=== PATIENT | female | born 1945 | race Caucasian/White ===

== ENCOUNTER → 2019-01-26 | Outpatient (CLI) | payer MEDICARE, BC | END | disposition home or self-care (01) | LOC: LABWHC1 12:07 | PROVIDERS: ATTEND Orthopaedic Surgery | DX: M25.531 Pain in right wrist (principal); S52.501A Unspecified fracture of the lower end of right radius, initial encounter for closed fracture | CPT/HCPCS: 36415; 82306 ==

== ENCOUNTER 2023-11-21 11:17 | Inpatient (IN) | payer MEDICARE, BC ==
[2023-11-21 13:01] LABS: Basophils # (A) 0.1 k/uL (0-0.2); Basophils % (A) 1 %; Eosinophils # (A) 0.6 k/uL (0-0.7); Eosinophils % (A) 4 %; HCT 33.5 % (34.0-46.0); HGB 10.8 gm/dL (11.4-16.0); Lymphocytes # (A) 2.2 k/uL (1.0-4.8); Lymphocytes % (A) 16 %; MCH 28.5 pg (25.0-35.0); MCHC 32.3 g/dL (31.0-37.0); MCV 88.2 fL (80.0-100.0); Mean Platelet Volume 7.1; Monocytes # (A) 0.5 k/uL (0-1.0); Monocytes % (A) 3 %; Neutrophils # (A) 10.5 k/uL (1.3-7.7); Neutrophils % (A) 75 %; Platelet Count 647 k/uL (150-450); RDW 13.7 % (11.5-15.5)
[2023-11-21 13:13] LABS: ALT 16 U/L (4-34); AST 29 U/L (14-36); African American GFR (CKD) 47 (>60 ml/min/1.73 sqM); Albumin 4.2 g/dL (3.5-5.0); Alkaline Phosphatase 220 U/L (38-126); Anion Gap 13 mmol/L; Blood Urea Nitrogen 34 mg/dL (7-17); Calcium 10.7 mg/dL (8.4-10.2); Carbon Dioxide 27 mmol/L (22-30); Chloride 95 mmol/L (98-107); Glucose 99 mg/dL (74-99); INR 0.9 (<1.2); Non-African American GFR(CKD) 41 (>60 ml/min/1.73 sqM); Potassium 3.1 mmol/L (3.5-5.1); Prothrombin Time 10.4 sec (10.0-12.5); Sodium 135 mmol/L (137-145); Total Bilirubin 0.7 mg/dL (0.2-1.3); Total Protein 8.3 g/dL (6.3-8.2)
--- NOTE | 2023-11-21 13:14 | XR ---
EXAMINATION TYPE: XR chest 2V DATE OF EXAM: 11/21/2023 COMPARISON: NONE HISTORY: Shortness of breath TECHNIQUE: Frontal and lateral views of the chest are obtained. FINDINGS: Scattered senescent parenchymal changes noted. Hyperinflation compatible with COPD. Right basilar infiltrate and small effusion. There is cardiomegaly with pulmonary venous congestion. Correlate for pneumonia AND/or atypical congestive failure. Progress studies are advised. Mediastinal structures are stable and grossly unremarkable. No evidence for hilar prominence. Degenerative changes dorsal spine. IMPRESSION: 1. Right basilar infiltrate and small effusion. There is cardiomegaly with pulmonary venous congestio n. Correlate for pneumonia AND/or atypical congestive failure. Progress studies are advised.
[2023-11-21] MEDS: LORazepam 2 MG/ML INJ IV STA (13:41)
--- NOTE | 2023-11-21 13:52 | ED ---
General Adult HPI - General Chief complaint: Shortness of Breath Stated complaint: Pneumonia Time Seen by Provider: 11/21/23 13:00 Source: patient, RN notes reviewed, old records reviewed Mode of arrival: ambulatory Limitations: no limitations - History of Present Illness Initial comments: This is an 78-year-old female who presents to the emergency department the past medical history significant for terminal lung cancer. Patient was down in [place] recently and had a thoracentesis. Patient states she came up in mid October to [place]. Patient states over the last 10 days she has had more more difficulty breathing and today she states she just feels like she cannot catch her breath. Patient denies any pain. Patient has any chest pain or any recent fever chills or cough or patient has any abdominal pain patient has nausea vomiting diarrhea. Patient states she just feels like she might need to have her lung drained again. - Related Data Home Medications Medication Instructions Recorded Confirmed Aspirin [Bates Aspirin EC] 81 mg PO DAILY 11/21/23 11/21/23 Chlorthalidone 50 mg PO DAILY 11/21/23 11/21/23 Cholecalciferol [Vitamin D3 (25 25 mcg PO DAILY 11/21/23 11/21/23 Mcg = 1000 Iu)] Losartan Potassium [Cozaar] 100 mg PO DAILY 11/21/23 11/21/23 bisacodyL [Dulcolax] 5 mg PO BID PRN 11/21/23 11/21/23 Allergies Allergy/AdvReac Type Severity Reaction Status Date / Time No Known Allergies Allergy Verified 11/21/23 15:16 Review of Systems ROS Statement: Those systems with pertinent positive or pertinent negative responses have been documented in the HPI. ROS Other: All systems not noted in ROS Statement are negative. Past Medical History Past Medical History: Cancer, Hypertension Additional Past Medical History / Comment(s): lung cancer w/mets History of Any Multi-Drug Resistant Organisms: None Reported Past Surgical History: Appendectomy, Cholecystectomy, Pacemaker, Tubal Ligation Past Psychological History: No Psychological Hx Reported Smoking Status: Former smoker Past Alcohol Use History: None Reported Past Drug Use History: None Reported General Exam - General Exam Comments Initial Comments: GENERAL: Patient is well-developed and well-nourished. Patient is nontoxic and well- hydrated and is in mild distress. ENT: Neck is soft and supple. No significant lymphadenopathy is noted. Oropharynx is clear. Moist mucous membranes. Neck has full range of motion without eliciting any pain. EYES: The sclera were anicteric and conjunctiva were pink and moist. Extraocular mo vements were intact and pupils were equal round and reactive to light. Eyelids were unremarkable. PULMONARY: Patient has diminished breath sounds on the right CARDIOVASCULAR: There is a regular rate and rhythm without any murmurs gallops or rubs. ABDOMEN: Soft and nontender with normal bowel sounds. SKIN: Skin is clear with no lesions or rashes and otherwise unremarkable. NEUROLOGIC: Patient is alert and oriented x3. Cranial nerves II through XII are grossly intact. Motor and sensory are also intact. Normal speech, volume and content. Symmetrical smile. MUSCULOSKELETAL: Normal extremities with adequate strength and full range of motion. No lower extremity swelling or edema. No calf tenderness. LYMPHATICS: No significant lymphadenopathy is noted PSYCHIATRIC: Normal psychiatric evaluation. Limitations: no limitations Course Vital Signs 11/21/23 11/21/23 11/21/23 11:25 11:45 11:54 Temperature 97.9 F Pulse Rate 97 100 Respiratory 18 20 22 Rate Blood Pressure 115/73 O2 Sat by Pulse 93 L 87 L Oximetry 11/21/23 11/21/23 13:00 14:00 Temperature Pulse Rate 65 68 Respiratory 16 16 Rate Blood Pressure 102/54 98/61 O2 Sat by Pulse 93 L 92 L Oximetry Medical Decision Making - Medical Decision Making EKG is interpreted by myself but EKG shows a paced rhythm at 100 bpm parables 217 QRS is 130 QT interval 362 QTc is 419 Was pt. sent in by a medical professional or institution (, PA, PERSONALIZATION SPECIALIST, urgent care, hospital, or long-term...) When possible be specific @ -Dr. Perez sent the patient in Did you speak to anyone other than the patient for history (EMS, parent, family, police, friend...)? What history was obtained from this source @ -Daughter gives almost all of the history because the patient is too anxious to Did you review nursing and triage notes (agree or disagree)? Why? @ -I reviewed and agree with nursing and triage notes Were old charts reviewed (outside hosp., previous admission, EMS record, old EKG, old radiological studies, urgent care reports/EKG's, long-term records)? Report findings @ -I reviewed prior lab work and compared to today's lab work and saw no significant abnormalities. Differential Diagnosis (chest pain, altered mental status, abdominal pain women, abdominal pain men, vaginal bleeding, weakness, fever, dyspnea, syncope, headache, dizziness, GI bleed, back pain, seizure, CVA, palpatations, mental health, musculoskeletal)? @ -Not applicable EKG interpreted by me (3pts min.). @ -As above X-rays interpreted by me (1pt min.). @ -Chest x-ray shows a right-sided pleural effusion CT interpreted by me (1pt min.). @ -CT scan shows no pulmonary embolism but does show pleural effusion on the right. U/S interpreted by me (1pt. min.). @ -None done What testing was considered but not performed or refused? (CT, X-rays, U/S, labs)? Why? @ -None What meds were considered but not given or refused? Why? @ -None Did you discuss the management of the patient with other professionals (professionals i.e. , PA, PERSONALIZATION SPECIALIST, lab, RT, psych nurse, social work faculty member, hay buckler, teacher, project control officer, telehealth case manager)? Give summary @ -I spoke with Dr. Rios he agreed to see the patient on consult. I spoke with Dr. Simpson agreed admit the patient. Was smoking cessation discussed for >3mins.? @ -No Was critical care preformed (if so, how long)? @ -No Were there social determinants of health that impacted care today? How? (Homelessness, low income, unemployed, alcoholism, drug addiction, transportation, low edu. Level, literacy, decrease access to med. care, nursing home, rehab)? @ -No Was there de-escalation of care discussed even if they declined (Discuss DNR or withdrawal of care, Hospice)? DNR status @ -No What co-morbidities impacted this encounter? (DM, HTN, Smoking, COPD, CAD, Cancer, CVA, ARF, Chemo, Hep., AIDS, mental health diagnosis, sleep apnea, morbid obesity)? @ -None Was patient admitted / discharged? Hospital course, mention meds given and route, prescriptions, significant lab abnormalities, going to OR and other pertinent info. @ -Patient received Ativan when she first got here and made her feel considerably better and she no longer appeared in any distress. I spoke with Dr. Rios he agreed to see the patient on consult I spoke with Dr. Johnson agreed to admit the patient I admitted the patient consulted Chris Rios and cardiothoracic. Undiagnosed new problem with uncertain prognosis? @ -No Drug Therapy requiring intensive monitoring for toxicity (Heparin, Nitro, Insulin, Cardizem)? @ -No Were any procedures done? @ -No Diagnosis/symptom? @ -Terminal lung cancer Acute, or Chronic, or Acute on Chronic? @ -Acute Uncomplicated (without systemic symptoms) or Complicated (systemic symptoms)? @ -Complicated Side effects of treatment? @ -No Exacerbation, Progression, or Severe Exacerbation? @ -No Poses a threat to life or bodily function? How? (Chest pain, USA, VT, pneumonia, PE, COPD, DKA, ARF, appy, cholecystitis, CVA, Diverticulitis, Homicidal, Suicidal, threat to staff... and all critical care pts) @ -Yes this can cause her hypoxia and end organ dysfunction Diagnosis/symptom? @ -Pleural effusion Acute, or Chronic, or Acute on Chronic? @ -Acute Uncomplicated (without systemic symptoms) or Complicated (systemic symptoms)? @ -Complicated Side effects of treatment? @ -None Exacerbation, Progression, or Severe Exacerbation] @ -No Poses a threat to life or bodily function? @ -Yes this can lead to poor ventilation and hypoxia and endorgan dysfunction Diagnosis/symptom? @ -Anxiety Acute, or Chronic, or Acute on Chronic? @ -Acute Uncomplicated (without systemic symptoms) or Complicated (systemic symptoms)? @ -Complicated Side effects of treatment? @ -None Exacerbation, Progression, or Severe Exacerbation] @ -No Poses a threat to life or bodily function? @ -No - Lab Data Result diagrams: 11/21/23 12:57 11/21/23 12:57 Lab Results 11/21/23 11/21/23 11/21/23 Range/Units 12:57 12:57 12:57 WBC 14.0 H (3.8-10.6) k/uL RBC 3.80 (3.80-5.40) m/uL Hgb 10.8 L (11.4-16.0) gm/dL Hct 33.5 L (34.0-46.0) % MCV 88.2 (80.0-100.0) fL MCH 28.5 (25.0-35.0) pg MCHC 32.3 (31.0-37.0) g/dL RDW 13.7 (11.5-15.5) % Plt Count 647 H (150-450) k/uL MPV 7.1 Neutrophils % 75 % Lymphocytes % 16 % Monocytes % 3 % Eosinophils % 4 % Basophils % 1 % Neutrophils # 10.5 H (1.3-7.7) k/uL Lymphocytes # 2.2 (1.0-4.8) k/uL Monocytes # 0.5 (0-1.0) k/uL Eosinophils # 0.6 (0-0.7) k/uL Basophils # 0.1 (0-0.2) k/uL PT 10.4 (10.0-12.5) sec INR 0.9 (<1.2) APTT 23.0 (22.0-30.0) sec Sodium 135 L (137-145) mmol/L Potassium 3.1 L (3.5-5.1) mmol/L Chloride 95 L (98-107) mmol/L Carbon Dioxide 27 (22-30) mmol/L Anion Gap 13 mmol/L BUN 34 H (7-17) mg/dL Creatinine 1.25 H (0.52-1.04) mg/dL Est GFR (CKD-EPI)AfAm 47 (>60 ml/min/1.73 sqM) Est GFR (CKD-EPI)NonAf 41 (>60 ml/min/1.73 sqM) Glucose 99 (74-99) mg/dL Plasma Lactic Acid Lenin (0.7-2.0) mmol/L Calcium 10.7 H (8.4-10.2) mg/dL Magnesium 2.0 (1.6-2.3) mg/dL Total Bilirubin 0.7 (0.2-1.3) mg/dL AST 29 (14-36) U/L ALT 16 (4-34) U/L Alkaline Phosphatase 220 H (38-126) U/L Troponin I (0.000-0.034) ng/mL Total Protein 8.3 H (6.3-8.2) g/dL Albumin 4.2 (3.5-5.0) g/dL 11/21/23 11/21/23 Range/Units 12:57 12:57 WBC (3.8-10.6) k/uL RBC (3.80-5.40) m/uL Hgb (11.4-16.0) gm/dL Hct (34.0-46.0) % MCV (80.0-100.0) fL MCH (25.0-35.0) pg MCHC (31.0-37.0) g/dL RDW (11.5-15.5) % Plt Count (150-450) k/uL MPV Neutrophils % % Lymphocytes % % Monocytes % % Eosinophils % % Basophils % % Neutrophils # (1.3-7.7) k/uL Lymphocytes # (1.0-4.8) k/uL Monocytes # (0-1.0) k/uL Eosinophils # (0-0.7) k/uL Basophils # (0-0.2) k/uL PT (10.0-12.5) sec INR (<1.2) APTT (22.0-30.0) sec Sodium (137-145) mmol/L Potassium (3.5-5.1) mmol/L Chloride (98-107) mmol/L Carbon Dioxide (22-30) mmol/L Anion Gap mmol/L BUN (7-17) mg/dL Creatinine (0.52-1.04) mg/dL Est GFR (CKD-EPI)AfAm (>60 ml/min/1.73 sqM) Est GFR (CKD-EPI)NonAf (>60 ml/min/1.73 sqM) Glucose (74-99) mg/dL Plasma Lactic Acid Lenin 1.6 (0.7-2.0) mmol/L Calcium (8.4-10.2) mg/dL Magnesium (1.6-2.3) mg/dL Total Bilirubin (0.2-1.3) mg/dL AST (14-36) U/L ALT (4-34) U/L Alkaline Phosphatase (38-126) U/L Troponin I 0.023 (0.000-0.034) ng/mL Total Protein (6.3-8.2) g/dL Albumin (3.5-5.0) g/dL Disposition Clinical Impression: Anxiety, Lung cancer, Pleural effusion Disposition: ADMITTED IP TO THIS HOSP Referrals: Мария Ramon MD [Primary Care Provider] - 1-2 days Time of Disposition: 15:33
--- NOTE | 2023-11-21 15:07 | CT ---
CTA CHEST EXAMINATION TYPE: CT chest angio for PE DATE OF EXAM: 11/21/2023 INDICATION: SOB CT DLP: 218 mGycm, Automated exposure control for dose reduction was used. CONTRAST: Patient injected with 100 mL of Isovue 370. COMPARISON: TECHNIQUE: CT of the chest is performed on a spiral scan at 2 mm thick sections. Study is performed with intravenous contrast timed for evaluation for pulmonary embolism. This will limit additional po rtions of the evaluation. 3-D MIP images reconstructed by the technologist are reviewed on the compu ter in the coronal and sagittal planes. FINDINGS: No persistent filling defects are evident to suggest an acute pulmonary embolism. No mediastinal or hilar adenopathy enlarged by CT criteria is evident. The ascending aorta diameter at the level of the main pulmonary artery is 3.0 cm. The main pulmonary artery diameter at the bifurcation is 2.4 cm. There is expansion of the posterior medial fifth rib. Soft tissue density is adjacent. Findings rui red compatible with metastatic lesion. An additional expansile lesion of the posterior lateral right lower ribs 7. Image 80 series 401 some subtle expansion may be present mid right lateral rib, image 4 8 series 401. There is a small right pleural effusion. Adjacent compressive atelectasis is present. There is soft tissue density in the right hilar region encasing the right lower lobe bronchus. Correl ate for neoplasm. Additional soft tissue densities along the mediastinal anterior border near the jermaine g base. Limited CT sections were through the upper abdomen. Minimal ascites adjacent to the liver may be pre sent. IMPRESSION: 1. No acute pulmonary embolism. 2. Right hilar mass with encasement of the right lower lobe bronchus. Workup for neoplasm. 3. Expansile lesion posterior left fifth rib. There may be 2 additional right rib lesions as well di scussed above.
[2023-11-21] MEDS ORDERED: Potassium Replacement Protocol 1 EACH MISC MISCELLANE PRN ×2 (16:04→21:31)
[2023-11-21] MEDS: POTASSIUM CHLORIDE ER 20 MEQ TAB.ER PO SCH ×2 (17:01→21:39)
[2023-11-21] MEDS ORDERED: NALOXONE 0.4 MG/ML 1 ML VIAL IV PRN (17:19)
[2023-11-21] MEDS ORDERED: MELATONIN 3 MG TABLET PO PRN (17:19)
[2023-11-21] MEDS ORDERED: LACTULOSE 20 GM/30 ML CUP PO PRN (17:19)
[2023-11-21] MEDS ORDERED: CALCIUM CARBONATE 500 MG CHEWABLE PO PRN (17:19)
--- NOTE | 2023-11-21 17:21 | P.HPIM ---
History of Present Illness H&P Date: 11/21/23 Chief Complaint: Short of breath This is a pleasant 78-year-old patient. Patient was in [place] diagnosed with pneumonia subsequently was diagnosed with lung cancer. She has lung cancer with metastasis to the bone. Diagnosed in September of this year. She has been drained once for pleural effusion. Seeing Dr. Perez. Has been having weight loss and some loss of appetite. Patient presents with worsening shortness of breath. Denies any fever and chills. No cough. Sitting up in a chair. Patient was a light smoker for several years in the past. Plan outpatient was to put in a drain on the right chest wall. Review of systems: GEN.: Tired loss of appetite weight loss EYES: None HEENT: None NECK: None RESPIRATORY: [Short of breath CARDIOVASCULAR: None GASTROINTESTINAL: None GENITOURINARY: None MUSCULOSKELETAL: None LYMPHATICS: None HEMATOLOGICAL: None PSYCHIATRY: None NEUROLOGICAL: None Social history: Patient smoked about average of 3 cigarettes a day for about 35 years and smoked from the age of 13 to about 48. Patient lives with her [id number] Physical examination: VITAL SIGNS: 98.1, 90, 16, 140 x 87, 100% room air GENERAL: BMI 23.2, sitting up in chair awake tired. EYES: Pupils equal. Conjunctiva marie l. HEENT: External appearance of nose and ears normal, oral cavity grossly normal. NECK: JVD not raised; masses not palpable. HEART: First and second heart sounds are normal; no edema. LUNGS: Respiratory rate increased, diminished breath sounds specially on the right side. ABDOMEN: Soft, nontender, liver spleen not palpable, no masses palpable. PSYCH: Alert and oriented x3; mood and affect marie l. MUSCULOSKELETAL:No Clubbing/cyanosis;muscles-grossly intact. OA NEUROLOGICAL: Cranial nerves grossly intact; no facial asymmetry, power and sensation grossly intact. LYMPHATICS: No lymph nodes palpable in the axilla and neck INVESTIGATIONS, reviewed in the clinical context: November 21, 2023: White count 14 hemoglobin 10.8 platelets 647 sodium 135 potassium 3.1. 34 creatinine 1.25 Influenza type A, type B, RSV, COVID-19: Not detected EKG tracing personally reviewed by va-ventricular pacemaker CT angio chest for PE: No PE. Right hilar mass with encasement of the right upper lobe bronchus. Possibly additional rib lesions. Expansile lesion posterior left fifth rib. Chest x-ray film personally reviewed by me-possible right lower lobe atelectasis/collapse. Possible fluid Assessment plan: -Lung cancer with bone metastasis. Patient is following with oncologist Dr. Perez. Currently has not received any treatment she states. -Right pleural effusion. Patient had thoracentesis x 1. Sent in for the same. Supposed to have a right-sided Pleurx catheter. Consult cardiothoracic surgery -Essential hypertension. Currently blood pressure running on the lower side. Stop Cozaar. Stop diuretic. Lovenox -Hypokalemia from diuretic Replace potassium -Abnormal renal function. Possibly prerenal from diuretic. IV fluids. Repeat labs. -DNR Consult cardiothoracic surgery. Discussed with patient. Consult oncology. Past Medical History Past Medical History: Cancer, Hypertension Additional Past Medical History / Comment(s): lung cancer w/mets History of Any Multi-Drug Resistant Organisms: None Reported Past Surgical History: Appendectomy, Cholecystectomy, Pacemaker, Tubal Ligation Past Psychological History: No Psychological Hx Reported Smoking Status: Former smoker Past Alcohol Use History: None Reported Past Drug Use History: None Reported Medications and Allergies Home Medications Medication Instructions Recorded Confirmed Type Aspirin [Mower Aspirin EC] 81 mg PO DAILY 11/21/23 11/21/23 History Chlorthalidone 50 mg PO DAILY 11/21/23 11/21/23 History Cholecalciferol [Vitamin D3 (25 25 mcg PO DAILY 11/21/23 11/21/23 History Mcg = 1000 Iu)] Losartan Potassium [Cozaar] 100 mg PO DAILY 11/21/23 11/21/23 History bisacodyL [Dulcolax] 5 mg PO BID PRN 11/21/23 11/21/23 History Allergies Allergy/AdvReac Type Severity Reaction Status Date / Time No Known Allergies Allergy Verified 11/21/23 15:16 Physical Exam Vitals: Vital Signs Temp Pulse Resp BP Pulse Ox 11/21/23 17:02 98 20 98/66 95 11/21/23 14:00 68 16 98/61 92 L 11/21/23 13:00 65 16 102/54 93 L 11/21/23 11:54 22 11/21/23 11:45 100 20 87 L 11/21/23 11:25 97.9 F 97 18 115/73 93 L Intake and Output 11/21/23 11/21/23 11/21/23 06:59 14:59 22:59 Other: Weight 53.977 kg Results CBC & Chem 7: 11/21/23 12:57 11/21/23 12:57 Labs: Abnormal Lab Results - Last 24 Hours (Table) 11/21/23 11/21/23 Range/Units 12:57 12:57 WBC 14.0 H (3.8-10.6) k/uL Hgb 10.8 L (11.4-16.0) gm/dL Hct 33.5 L (34.0-46.0) % Plt Count 647 H (150-450) k/uL Neutrophils # 10.5 H (1.3-7.7) k/uL Sodium 135 L (137-145) mmol/L Potassium 3.1 L (3.5-5.1) mmol/L Chloride 95 L (98-107) mmol/L BUN 34 H (7-17) mg/dL Creatinine 1.25 H (0.52-1.04) mg/dL Calcium 10.7 H (8.4-10.2) mg/dL Alkaline Phosphatase 220 H (38-126) U/L Total Protein 8.3 H (6.3-8.2) g/dL
[2023-11-21] MEDS: ENOXAPARIN 40 MG/0.4 ML SYRINGE SQ SCH (18:27)
[2023-11-21] MEDS: SODIUM CHLORIDE 0.45% 1,000 ML IV SCH (18:35)
[2023-11-21] MEDS: Acetaminophen-Codeine 300-30mg TAB PO PRN (18:49)
[2023-11-21] MEDS: LORazepam 1 MG TAB PO PRN (20:56)
[2023-11-21] MEDS: ZOLPIDEM 5 MG TAB PO PRN (20:56)
[2023-11-22] MEDS: POTASSIUM CHLORIDE ER 20 MEQ TAB.ER PO SCH (02:45)
[2023-11-22] MEDS: ONDANSETRON 4 MG/2 ML VIAL IVP PRN (05:21)
[2023-11-22] MEDS: bisacodyL 5 MG TABLET.DR PO PRN (08:13)
--- NOTE | 2023-11-22 08:27 | P.CNPUL ---
History of Present Illness Consult date: 11/22/23 Requesting physician: Lev Simpson Reason for consult: dyspnea, hypoxemia, pleural effusion, abnormal CXR/CT Chief complaint: Shortness of breath, pleural effusion. History of present illness: Pulmonary consult dated November 22, 2023. 78-year-old female who apparently has a history of metastatic lung cancer. She was sent to the hospital, for possible thoracentesis. She apparently has a history of a previous thoracentesis done in [place]. She has never been to this hospital before. She has a history of lung cancer with metastasis, hypertension, and previous pacemaker insertion. She did have a thoracentesis in the past, down to [place], where 1.3 L of fluid was removed. She was seen already by cardiothoracic surgery, because apparently, she was interested in a Pleurx catheter. The patient is currently on 2 L of oxygen. She is getting half-normal saline at 75 cc an hour. Laboratory data includes a white count 14, hemoglobin 10.8, hematocrit 33.5, platelet count of 647,000. Coagulation studies are normal. Sodium 135, potassium 3.5, chlorides 95, CO2 27, anion gap 13, BUN 34, creatinine 1.25. Calcium is 10.7. Alkaline phosphatase is 220. Total protein is 8.3. Testing for influenza, RSV, coronavirus were all negative. Chest x-ray suggest a right basilar infiltrate and small effusion. There is also some cardiomegaly, and venous congestion. CT angiogram showed no evidence of pulmonary embolism, a right hilar mass with encasement of the right lower lobe bronchus, and an expansile lesion in the posterior left fifth rib Review of Systems REVIEW OF SYSTEMS: CONSTITUTIONAL: Weakness. NEUROLOGIC: [ Negative.] HEENT: [ Negative.] CARDIAC: [Negative.] PULMONARY: Shortness of breath. GI: [Negative.] : [Negative.] RHEUMATOLOGIC: [ Negative.] IMMUNOLOGIC: [ Negative.] ENDOCRINE: [Negative. ] DERMATOLOGIC: [Negative.] Past Medical History Past Medical History: Cancer, Hypertension Additional Past Medical History / Comment(s): lung cancer w/mets History of Any Multi-Drug Resistant Organisms: None Reported Past Surgical History: Appendectomy, Cholecystectomy, Pacemaker, Tubal Ligation Type of Cardiac Device: Permanent Pacemaker Device Placement Date:: 2020 Past Psychological History: No Psychological Hx Reported Smoking Status: Former smoker Past Alcohol Use History: None Reported Past Drug Use History: None Reported Medications and Allergies Home Medications Medication Instructions Recorded Confirmed Type Aspirin [[place] Aspirin EC] 81 mg PO DAILY 11/21/23 11/21/23 History Chlorthalidone 50 mg PO DAILY 11/21/23 11/21/23 History Cholecalciferol [Vitamin D3 (25 25 mcg PO DAILY 11/21/23 11/21/23 History Mcg = 1000 Iu)] Losartan Potassium [Cozaar] 100 mg PO DAILY 11/21/23 11/21/23 History bisacodyL [Dulcolax] 5 mg PO BID PRN 11/21/23 11/21/23 History Allergies Allergy/AdvReac Type Severity Reaction Status Date / Time No Known Allergies Allergy Verified 11/21/23 15:16 Physical Exam Osteopathic Statement: *. No significant issues noted on an osteopathic structural exam other than those noted in the History and Physical/Consult. Vitals: Vital Signs Temp Pulse Pulse Resp BP BP Pulse Ox 11/22/23 07:44 98.3 F 105 H 20 92/57 96 11/22/23 02:30 88/50 11/22/23 02:00 98.1 F 95 16 70/41 91 L 11/21/23 20:00 98.5 F 106 H 16 114/70 91 L 11/21/23 19:30 16 11/21/23 18:04 97.2 F L 96 20 107/69 94 L 11/21/23 17:39 93 18 101/62 93 L 11/21/23 17:02 98 20 98/66 95 11/21/23 14:00 68 16 98/61 92 L 11/21/23 13:00 65 16 102/54 93 L 11/21/23 11:54 22 11/21/23 11:45 100 20 87 L 11/21/23 11:25 97.9 F 97 18 115/73 93 L Intake and Output 11/21/23 11/22/23 11/22/23 22:59 06:59 14:59 Intake Total 120 590 Balance 120 590 Intake: Oral 120 590 Other: # Voids 2 Weight 53.977 kg No acute distress, oriented 3. Currently on 2 L. Patient appears frail. HEENT examination is grossly unremarkable. Mucous membranes are moist. No oral lesions. Neck supple. Full range of motion. No adenopathy thyromegaly or neck vein distention. Cardiovascular examination reveals regular rhythm rate. S1-S2 normal. No S3 or S4. No discernible murmur noted. Heart rate 95 bpm. Lungs reveal manage right basilar breath sounds. No wheezes. Scattered rhonchi. Saturations are 96% on 2 L. Abdomen soft bowel sounds are heard. No masses or tenderness. Extremities are intact. No cyanosis clubbing or edema. Skin is without rash or lesion. Neurologic examination is brief but nonfocal. Results - Laboratory Findings CBC and BMP: 11/21/23 12:57 11/22/23 01:26 PT/INR, D-dimer PT 10.4 sec (10.0-12.5) 11/21/23 12:57 INR 0.9 (<1.2) 11/21/23 12:57 Abnormal lab findings: Abnormal Labs 11/21/23 11/21/23 11/21/23 12:57 12:57 21:05 WBC 14.0 H Hgb 10.8 L Hct 33.5 L Plt Count 647 H Neutrophils # 10.5 H Sodium 135 L Potassium 3.1 L 3.1 L Chloride 95 L BUN 34 H Creatinine 1.25 H Calcium 10.7 H Alkaline Phosphatase 220 H Total Protein 8.3 H - Diagnostic Findings Chest x-ray: image reviewed CT scan - chest: image reviewed Assessment and Plan Assessment: History of metastatic lung cancer, with previous right-sided pleural effusion, S/P thoracentesis, in [place]. Shortness of breath, secondary to lung cancer, and right-sided pleural effusion. History of hypertension. Mild hypercalcemia, possibly related to lung cancer, and bony metastasis. History of pacemaker insertion. Plan: Plan dated November 22, 2023. The patient is seen in room 535. She is on 2 L of oxygen. No respiratory distress. She is getting half-normal saline at 75 cc an hour. Cardiothoracic surgery has seen the patient already, for consideration of a Pleurx catheter. The patient has only had [address] scan, the fluid does not appear to be large in quantity. We will check an ultrasound of the right chest, and make a determination as to whether or not the patient would benefit from thoracentesis. Will await opinion from cardiothoracic surgery. Labs, x- rays, and medications are reviewed. Prognosis is poor. Time with Patient: Greater than 30
[2023-11-22] MEDS ORDERED: LOSARTAN 50 MG TAB PO SCH (09:00)
[2023-11-22] MEDS ORDERED: CHLORTHALIDONE 25 MG TAB PO SCH (09:00)
[2023-11-22 09:35] LABS: African American GFR (CKD) 26 (>60 ml/min/1.73 sqM); Anion Gap 14 mmol/L; Blood Urea Nitrogen 45 mg/dL (7-17); Calcium 9.2 mg/dL (8.4-10.2); Carbon Dioxide 22 mmol/L (22-30); Chloride 96 mmol/L (98-107); Glucose 106 mg/dL (74-99); Magnesium 1.8 mg/dL (1.6-2.3); Non-African American GFR(CKD) 22 (>60 ml/min/1.73 sqM); Potassium 4.1 mmol/L (3.5-5.1); Sodium 132 mmol/L (137-145)
--- NOTE | 2023-11-22 10:01 | US ---
EXAMINATION TYPE: US chest DATE OF EXAM: 11/22/2023 COMPARISON: CT & Chest Xray CLINICAL INDICATION: Female, 78 years old with history of Right pleural effusion; Effusion right TECHNIQUE: Targeted ultrasound of the posterior lower right hemithorax EXAM MEASUREMENTS: Right Pleural Effusion pocket size: 1.5 cm Right skin surface to fluid distance: 3.2 cm Right side Not marked for possible thoracentesis outside the dept- fluid pocket too small. Pulmonologists are able to review the images in the patient?s EMR. IMPRESSIONS: As above
--- NOTE | 2023-11-22 11:55 | P.GSCN ---
History of Present Illness Consult date: 11/22/23 Reason for Consult: Metastatic lung cancer with recurrent right-sided pleural effusion, status post right thoracentesis in [place] 2 months ago Requesting physician: Denzel Baum History of present illness: This is an 78-year-old female patient who follows on an outpatient basis with Dr. Houston for her primary care and Dr. Perez for her oncology care. She has a past medical history significant for a recent diagnosis of metastatic lung cancer, according to the patient she was diagnosed a couple of months ago with lung cancer, history of hypertension, history of permanent pacemaker placement, and remote history of smoking dependence quit smoking in her 50s. According to the patient she was at her oncologist office and was requested to present to the emergency department here at [facility] secondary to her symptoms of shortness of breath. The patient denies any recent fever, chills, nausea, vomiting, headache, hemoptysis, hematemesis, chest pain, cough, presyncope or syncope. She does report some generalized weakness. She has a history of a right-sided thoracentesis completed around 2 months ago while visiting in [place]. The patient reports that she had around 1.3 L of pleural fluid drained at that time. The patient reports she presented to the hospital as her oncologist wanted her to be worked up for a Pleurx catheter placement. A chest CTA was completed which demonstrated no acute pulmonary embolism, a right hilar mass with encasement of the right lower lobe bronchus, and and an expansile lesion posterior left fifth rib. Due to the patient's history of righ t pleural effusion pulmonary/critical care medicine was consulted and an ultrasound of her chest was completed which showed a right pleural effusion pocket size of 1.5 cm. Cardiothoracic surgery was consulted for a recurrent right-sided pleural effusion for possible Pleurx catheter placement. Review of Systems A 14 point review of systems was completed and was negative except as mentioned in the HPI. Past Medical History Past Medical History: Cancer, Hypertension Additional Past Medical History / Comment(s): lung cancer w/mets History of Any Multi-Drug Resistant Organisms: None Reported Past Surgical History: Appendectomy, Cholecystectomy, Pacemaker, Tubal Ligation Past Anesthesia/Blood Transfusion Reactions: No Reported Reaction Type of Cardiac Device: Permanent Pacemaker Device Placement Date:: 2020 Past Psychological History: No Psychological Hx Reported Smoking Status: Former smoker (Quit smoking when she was in her 50s) Past Alcohol Use History: None Reported Past Drug Use History: None Reported - Past Family History Mother Family Medical History: CVA/TIA Father Additional Family Medical History / Comment(s): Brain tumor Medications and Allergies Home Medications Medication Instructions Recorded Confirmed Type Aspirin [[place] Aspirin EC] 81 mg PO DAILY 11/21/23 11/21/23 History Chlorthalidone 50 mg PO DAILY 11/21/23 11/21/23 History Cholecalciferol [Vitamin D3 (25 25 mcg PO DAILY 11/21/23 11/21/23 History Mcg = 1000 Iu)] Losartan Potassium [Cozaar] 100 mg PO DAILY 11/21/23 11/21/23 History bisacodyL [Dulcolax] 5 mg PO BID PRN 11/21/23 11/21/23 History Allergies Allergy/AdvReac Type Severity Reaction Status Date / Time No Known Allergies Allergy Verified 11/21/23 15:16 Surgical - Exam Vital Signs Temp Pulse Resp BP Pulse Ox 97.9 F 97 18 115/73 93 L 11/21/23 11:25 11/21/23 11:25 11/21/23 11:25 11/21/23 11:25 11/21/23 11:25 - General well developed, well nourished, no distress, no pain - Eyes PERRL, normal ocular movement, no pale, no icteric - ENT normal pinna, normal nares, normal mucosa, no hearing loss, no congestion - Neck Neck is supple, no lymphadenopathy. no masses, no bruits, trachea midline, no venous distension - Respiratory Lung sounds diminished to her right lower lobe, essentially clear to her left lobes. No wheezes, rhonchi or crackles. Respirations are symmetrical and nonlabored. - Cardiovascular Regular rhythm and rate. S1 and S2 present, negative for S3 or gallop. Systolic murmur 4/6 heard best to her left sternal border. - Abdomen Abdomen: soft, non tender, no tender, bowel sounds, no organomegaly, no masses, no guarding, no rigid, no distended - Genitourinary Deferred - Rectum Deferred - Integumentary Skin is warm and dry. No clubbing or cyanosis is present. no rash, no growths, no abnormal pigmentation - Neurologic No focal deficits. normal coordination, normal sensation - Musculoskeletal Moves all 4 extremities with equal strength bilateral. Generalized weakness. - Psychiatric oriented to time, oriented to person, oriented to place, speech is normal, memory intact Results - Labs 11/21/23 12:57 11/24/23 05:55 Abnormal Lab Results - Last 24 Hours (Table) 11/21/23 11/21/23 11/21/23 Range/Units 12:57 12:57 21:05 WBC 14.0 H (3.8-10.6) k/uL Hgb 10.8 L (11.4-16.0) gm/dL Hct 33.5 L (34.0-46.0) % Plt Count 647 H (150-450) k/uL Neutrophils # 10.5 H (1.3-7.7) k/uL Sodium 135 L (137-145) mmol/L Potassium 3.1 L 3.1 L (3.5-5.1) mmol/L Chloride 95 L (98-107) mmol/L BUN 34 H (7-17) mg/dL Creatinine 1.25 H (0.52-1.04) mg/dL Glucose (74-99) mg/dL Calcium 10.7 H (8.4-10.2) mg/dL Alkaline Phosphatase 220 H (38-126) U/L Total Protein 8.3 H (6.3-8.2) g/dL 11/22/23 Range/Units 08:28 WBC (3.8-10.6) k/uL Hgb (11.4-16.0) gm/dL Hct (34.0-46.0) % Plt Count (150-450) k/uL Neutrophils # (1.3-7.7) k/uL Sodium 132 L (137-145) mmol/L Potassium (3.5-5.1) mmol/L Chloride 96 L (98-107) mmol/L BUN 45 H (7-17) mg/dL Creatinine 2.07 H (0.52-1.04) mg/dL Glucose 106 H (74-99) mg/dL Calcium (8.4-10.2) mg/dL Alkaline Phosphatase (38-126) U/L Total Protein (6.3-8.2) g/dL Diabetes panel 11/21/23 11/21/23 11/22/23 Range/Units 12:57 21:05 01:26 Sodium 135 L (137-145) mmol/L Potassium 3.1 L 3.1 L 3.5 (3.5-5.1) mmol/L Chloride 95 L (98-107) mmol/L Carbon Dioxide 27 (22-30) mmol/L BUN 34 H (7-17) mg/dL Creatinine 1.25 H (0.52-1.04) mg/dL Glucose 99 (74-99) mg/dL Calcium 10.7 H (8.4-10.2) mg/dL AST 29 (14-36) U/L ALT 16 (4-34) U/L Alkaline Phosphatase 220 H (38-126) U/L Total Protein 8.3 H (6.3-8.2) g/dL Albumin 4.2 (3.5-5.0) g/dL 11/22/23 Range/Units 08:28 Sodium 132 L (137-145) mmol/L Potassium 4.1 (3.5-5.1) mmol/L Chloride 96 L (98-107) mmol/L Carbon Dioxide 22 (22-30) mmol/L BUN 45 H (7-17) mg/dL Creatinine 2.07 H (0.52-1.04) mg/dL Glucose 106 H (74-99) mg/dL Calcium 9.2 (8.4-10.2) mg/dL AST (14-36) U/L ALT (4-34) U/L Alkaline Phosphatase (38-126) U/L Total Protein (6.3-8.2) g/dL Albumin (3.5-5.0) g/dL Calcium panel 11/21/23 11/22/23 Range/Units 12:57 08:28 Calcium 10.7 H 9.2 (8.4-10.2) mg/dL Albumin 4.2 (3.5-5.0) g/dL Pituitary panel 11/21/23 11/21/23 11/22/23 Range/Units 12:57 21:05 01:26 Sodium 135 L (137-145) mmol/L Potassium 3.1 L 3.1 L 3.5 (3.5-5.1) mmol/L Chloride 95 L (98-107) mmol/L Carbon Dioxide 27 (22-30) mmol/L BUN 34 H (7-17) mg/dL Creatinine 1.25 H (0.52-1.04) mg/dL Glucose 99 (74-99) mg/dL Calcium 10.7 H (8.4-10.2) mg/dL 11/22/23 Range/Units 08:28 Sodium 132 L (137-145) mmol/L Potassium 4.1 (3.5-5.1) mmol/L Chloride 96 L (98-107) mmol/L Carbon Dioxide 22 (22-30) mmol/L BUN 45 H (7-17) mg/dL Creatinine 2.07 H (0.52-1.04) mg/dL Glucose 106 H (74-99) mg/dL Calcium 9.2 (8.4-10.2) mg/dL Adrenal panel 11/21/23 11/21/23 11/22/23 Range/Units 12:57 21:05 01:26 Sodium 135 L (137-145) mmol/L Potassium 3.1 L 3.1 L 3.5 (3.5-5.1) mmol/L Chloride 95 L (98-107) mmol/L Carbon Dioxide 27 (22-30) mmol/L BUN 34 H (7-17) mg/dL Creatinine 1.25 H (0.52-1.04) mg/dL Glucose 99 (74-99) mg/dL Calcium 10.7 H (8.4-10.2) mg/dL Total Bilirubin 0.7 (0.2-1.3) mg/dL AST 29 (14-36) U/L ALT 16 (4-34) U/L Alkaline Phosphatase 220 H (38-126) U/L Total Protein 8.3 H (6.3-8.2) g/dL Albumin 4.2 (3.5-5.0) g/dL 11/22/23 Range/Units 08:28 Sodium 132 L (137-145) mmol/L Potassium 4.1 (3.5-5.1) mmol/L Chloride 96 L (98-107) mmol/L Carbon Dioxide 22 (22-30) mmol/L BUN 45 H (7-17) mg/dL Creatinine 2.07 H (0.52-1.04) mg/dL Glucose 106 H (74-99) mg/dL Calcium 9.2 (8.4-10.2) mg/dL Total Bilirubin (0.2-1.3) mg/dL AST (14-36) U/L ALT (4-34) U/L Alkaline Phosphatase (38-126) U/L Total Protein (6.3-8.2) g/dL Albumin (3.5-5.0) g/dL - Imaging CT scan - chest: report reviewed Assessment and Plan Assessment: History of metastatic lung cancer, previous right-sided pleural effusion with thoracentesis 2 months ago in [place] Shortness of breath, likely secondary to above Hypertension Remote history of smoking dependence, quit smoking when she was in her 50s Plan: The patient was seen and examined at her bedside on the fifth floor medical oncology unit. Her chart and diagnostics were reviewed. Her case was discussed in detail with Dr. Kiran from cardiothoracic surgery. At this time the ultrasound of the chest is showing a 1.5 cm fluid pocket. No Pleurx catheter is indicated at this time. Medical management and other comorbidities per primary care service. We will continue to follow the patient on an as-needed basis. Thank you for this consult. I have personally seen and examined the patient, performed the documentation and the assessment and plan as written. Number of minutes spent on the visit: 30. SHARMAINE Sibley Attending Addendum: Pt seen and evaluated with IT ASSISTANT above. Agree with his assessment and plan. I spent 35 minutes reviewing and data and discussing plan of care with the team. Time with Patient: Greater than 30
[2023-11-22] MEDS: Acetaminophen-Codeine 300-30mg TAB PO PRN (15:24)
[2023-11-22] MEDS: FAMOTIDINE 20 MG TAB PO SCH (15:25)
[2023-11-22] MEDS: ENOXAPARIN 30 MG/0.3 ML SYRINGE SQ SCH (15:25)
--- NOTE | 2023-11-22 15:40 | P.CONS ---
History of Present Illness - Reason for Consult Consult date: 11/22/23 Metastatic lung cancer - Chief Complaint Dyspnea - History of Present Illness Ms. Gamez is an 78-year-old woman with a past medical history significant for sick sinus syndrome status post pacemaker placement, atrial fibrillation, and recent diagnosis of metastatic adenocarcinoma of the lung admitted for progressive dyspnea on exertion. With regards to her adenocarcinoma of the lung, she initially presented to hospital in [place] in September 2023 with progressive dyspnea and was found to have large right-sided pleural effusion with cytology being positive for adenocarcinoma. Additional workup noted lytic lesions in the cervical, thoracic, and lumbar spines as well as the left iliac bone. There was bilateral renal gland thickening also concerning for metastases. Biopsy of the left iliac bone was also consistent with adenocarcinoma. Assessment of circulating tumor DNA noted no targetable mutations with PTEN, TP53, KRAS G12A mutations and KIT amplification. We met in clinic on 11/19/2023 and discussed the staging and prognosis. After discussion, she elected to not pursue any cancer directed treatment and focus on controlling symptoms and maximizing quality of life. On exam, I did appreciate diminished breath sounds in the right lung base with concern for recurrent effusion. We attempted to arrange to have her seen by interventional radiology for assessment of potential catheter outpatient, but subsequently developed progressive dyspnea since her visit and advised her to present to the ED for additional management. CTA of the chest revealed no evidence of pulmonary embolism, noted right hilar mass with encasement of the right lower lobe bronchus as well as expansile lesion posterior to the left fifth rib along with lesion in one of the right ribs. Small pleural effusion on the right was noted along with a small pocket noted on ultrasound. Cardiothoracic surgery was consulted and did not recommend placement of Pleurx catheter. She continues to have dyspnea relieved by sitting up. She is also having some mild back pain, controlled with Tylenol with codei ne along with reflux. Outpatient, she noted reflux did not improve with omeprazole and had been prescribed Pepcid. She has not been able to take Pepcid since being prescribed this following her clinic visit. Review of Systems 14 point of systems was conducted with pertinent positives and negatives as noted per HPI Past Medical History Past Medical History: Cancer, Hypertension Additional Past Medical History / Comment(s): lung cancer w/mets History of Any Multi-Drug Resistant Organisms: None Reported Past Surgical History: Appendectomy, Cholecystectomy, Pacemaker, Tubal Ligation Past Anesthesia/Blood Transfusion Reactions: No Reported Reaction Type of Cardiac Device: Permanent Pacemaker Device Placement Date:: 2020 Past Psychological History: No Psychological Hx Reported Smoking Status: Former smoker (Quit smoking when she was in her 50s) Past Alcohol Use History: None Reported Past Drug Use History: None Reported - Past Family History Mother Family Medical History: CVA/TIA Father Additional Family Medical History / Comment(s): Brain tumor Medications and Allergies Home Medications Medication Instructions Recorded Confirmed Type Aspirin [[place] Aspirin EC] 81 mg PO DAILY 11/21/23 11/21/23 History Chlorthalidone 50 mg PO DAILY 11/21/23 11/21/23 History Cholecalciferol [Vitamin D3 (25 25 mcg PO DAILY 11/21/23 11/21/23 History Mcg = 1000 Iu)] Losartan Potassium [Cozaar] 100 mg PO DAILY 11/21/23 11/21/23 History bisacodyL [Dulcolax] 5 mg PO BID PRN 11/21/23 11/21/23 History Allergies Allergy/AdvReac Type Severity Reaction Status Date / Time No Known Allergies Allergy Verified 11/21/23 15:16 Physical Exam Vitals: Vital Signs Temp Pulse Pulse Resp BP BP Pulse Ox 11/22/23 14:00 97.7 F 105 H 19 91/58 92 L 11/22/23 08:00 16 11/22/23 07:44 98.3 F 105 H 20 92/57 96 11/22/23 02:30 88/50 11/22/23 02:00 98.1 F 95 16 70/41 91 L 11/21/23 20:00 98.5 F 106 H 16 114/70 91 L 11/21/23 19:30 16 11/21/23 18:04 97.2 F L 96 20 107/69 94 L 11/21/23 17:39 93 18 101/62 93 L 11/21/23 17:02 98 20 98/66 95 Intake and Output 11/22/23 11/22/23 11/22/23 06:59 14:59 22:59 Intake Total 590 Balance 590 Intake: Oral 590 Other: # Voids 2 - Constitutional General appearance: cooperative, mild distress - EENT Eyes: EOMI - Neck Neck: no lymphadenopathy - Respiratory Respiratory: right: diminished (Diminished breath sounds in the right lung base) - Cardiovascular Rhythm: regular - Gastrointestinal General gastrointestinal: no distended, soft - Integumentary Integumentary: pale, no rash - Neurologic Neurologic: CNII-XII intact - Psychiatric Psychiatric: A&O x's 3 Results CBC & Chem 7: 11/21/23 12:57 11/22/23 08:28 Labs: Abnormal Lab Results - Last 24 Hours (Table) 11/21/23 11/22/23 Range/Units 21:05 08:28 Sodium 132 L (137-145) mmol/L Potassium 3.1 L (3.5-5.1) mmol/L Chloride 96 L (98-107) mmol/L BUN 45 H (7-17) mg/dL Creatinine 2.07 H (0.52-1.04) mg/dL Glucose 106 H (74-99) mg/dL Assessment and Plan (1) Non-small cell carcinoma of right lung, stage 4 Current Visit: Yes Status: Acute Code(s): C34.91 - MALIGNANT NEOPLASM OF UNSP PART OF RIGHT BRONCHUS OR LUNG SNOMED Code(s): 979458220 Plan: #Metastatic adenocarcinoma of the right lung -Diagnosed in September 2023 in [place] -Large right pleural effusion along with metastases to the bone in the spine and pelvis and possible bilateral adrenal gland metastases -Circulating tumor DNA revealed no targetable mutations -Following discussion in clinic, she elected to focus on managing underlying symptoms as opposed to pursuing cancer directed treatment -She did have diminished breath sounds in the right lung base on exam has had progressive dyspnea since her visit on 11/19/2023 -At that time, there was clinical concern for potential recurrent pleural effusion and was advised to present to the hospital for placement of possible catheter (pigtail versus Pleurx) -CTA of the chest reveals no evidence of pulmonary embolism or infection, but did note encasement of right lower lobe bronchus by right hilar mass with a small right pleural effusion -Ultrasound of the chest does not appear to show significant fluid pocket -At this time, it appears that her aggressive dyspnea is likely due to the encasement of the right lower lobe bronchus by the hilar mass as opposed to malignant effusion -I discussed with Sana that catheter placement or thoracentesis would provide limited benefit -I did discuss the possibility of palliative radiation, which she was amenable to -We will have radiation oncology see her to see if she would benefit from palliative radiation to the right hilar mass -Tylenol with codeine frequency was increased to every 4 hours as needed from every 6 hours -Pepcid 20 mg twice daily was also prescribed for reflux -With regards to her disposition, the plan was for her to go with her daughter, who lives in [place], to [place] [facility] [place] live there on a permanent basis Philipp Perez MD
--- NOTE | 2023-11-22 16:28 | P.PN ---
Progress Note - Text Progress Note Date: 11/22/23 Chief Complaint: Short of breath This is a pleasant 78-year-old patient. Patient was in [place] diagnosed with pneumonia subsequently was diagnosed with lung cancer. She has lung cancer with metastasis to the bone. Diagnosed in September of this year. She has been drained once for pleural effusion. Seeing Dr. Perez. Has been having weight loss and some loss of appetite. Patient presents with worsening shortness of breath. Denies any fever and chills. No cough. Sitting up in a chair. Patient was a light smoker for several years in the past. Plan outpatient was to put in a drain on the right chest wall. November 21: Patient found to have not much fluid on the right side. Seen by cardiothoracic team. His Pleurx will not be placed right now. Patient is currently living with her [id number] nearby. Patient daughter's lives 6 hours away in [facility]. Patient is for palliative care currently. She plans to take the patient back. Was explained that once the fluid builds up a bit then the Pleurx can be placed. Getting IV fluids. Tired. Decreased oral intake. Active Medications Acetaminophen (Acetaminophen Tab 325 Mg Tab) 650 mg PO Q6HR PRN PRN Reason: Mild Pain or Fever > 100.5 Acetaminophen/Codeine Phosphate (Acetaminophen-Codeine 300-30mg Tab) 1 each PO Q4HR PRN PRN Reason: Pain Last Admin: 11/22/23 15:24 Dose: 1 each Bisacodyl (Bisacodyl 5 Mg Tablet.) 5 mg PO BID PRN PRN Reason: Constipation Last Admin: 11/22/23 08:13 Dose: 5 mg Calcium Carbonate/Glycine (Calcium Carbonate 500 Mg Chewable) 1,000 mg PO Q4HR PRN PRN Reason: Dyspepsia Enoxaparin Sodium (Enoxaparin 30 Mg/0.3 Ml Syringe) 30 mg SQ DAILY JJ Last Admin: 11/22/23 15:25 Dose: 30 mg Famotidine (Famotidine 20 Mg Tab) 20 mg PO HS JJ Last Admin: 11/22/23 15:25 Dose: 20 mg Sodium Chloride (Saline 0.45%) 1,000 mls @ 75 mls/hr IV .[id number] JJ Last Admin: 11/22/23 15:25 Dose: 75 mls/hr Lactulose (Lactulose 20 Gm/30 Ml Cup) 20 gm PO DAILY PRN PRN Reason: Constipation Lorazepam (Lorazepam 1 Mg Tab) 1 mg PO Q8HR PRN PRN Reason: Anxiety Last Admin: 11/22/23 05:07 Dose: 1 mg Melatonin (Melatonin 3 Mg Tablet) 3 mg PO HS PRN PRN Reason: Insomnia Miscellaneous Information (Potassium Replacement Protocol 1 Each Misc) 1 each MISCELLANE DAILY PRN; Protocol PRN Reason: Per Protocol Naloxone HCl (Naloxone 0.4 Mg/Ml 1 Ml Vial) 0.2 mg IV Q2M PRN PRN Reason: Opioid Reversal Ondansetron HCl (Ondansetron 4 Mg/2 Ml Vial) 4 mg IVP Q8HR PRN PRN Reason: Nausea And Vomiting Last Admin: 11/22/23 05:21 Dose: 4 mg Zolpidem Tartrate (Zolpidem 5 Mg Tab) 2.5 mg PO HS PRN PRN Reason: Insomnia Last Admin: 11/21/23 20:56 Dose: 2.5 mg Social history: Patient smoked about average of 3 cigarettes a day for about 35 years and smoked from the age of 13 to about 48. Patient lives with her [id number] Physical examination: VITAL SIGNS: 97.7, 105, 19, 91/58, 92% room air GENERAL: BMI 23.2, reclining in bed, tired d. EYES: Pupils equal. Conjunctiva marie l. HEENT: External appearance of nose and ears normal, oral cavity grossly normal. NECK: JVD not raised; masses not palpable. HEART: First and second heart sounds are normal; no edema. LUNGS: Respiratory rate increased, diminished breath sounds ABDOMEN: Soft, nontender, liver spleen not palpable, no masses palpable. PSYCH: Alert and oriented x3; mood and affect tired. MUSCULOSKELETAL:No Clubbing/cyanosis;muscles-grossly intact. OA INVESTIGATIONS, reviewed in the clinical context: November 21, 2023: White count 14 hemoglobin 10.8 platelets 647 sodium 135 potassium 3.1. 34 creatinine 1.25 Influenza type A, type B, RSV, COVID-19: Not detected EKG tracing personally reviewed by wy-ventricular pacemaker CT angio chest for PE: No PE. Right hilar mass with encasement of the right upper lobe bronchus. Possibly additional rib lesions. Expansile lesion posterior left fifth rib. Chest x-ray film personally reviewed by me-possible right lower lobe atelectasis/collapse. Possible fluid Assessment plan: -Lung cancer with bone metastasis. Patient is following with oncologist Dr. Perez. For any further treatment. For palliative care. With right Pleurx catheter -Right pleural effusion. Patient had thoracentesis x 1 in [place].. Sent in for the same. Supposed to have a right-sided Pleurx catheter. Inadequate amount of right pleural effusion for Pleurx catheter. Present time no further intervention. -Essential hypertension. Currently blood pressure running on the lower side. Cozaar and diuretic have been stopped -Hypokalemia from diuretic Replace potassium -Abnormal renal function. Possibly prerenal from diuretic.: Worsening IV fluids. -DNR Spoke to Sumi from cardiothoracic surgery. Not for Pleurx at the present time. Spoke at length to patient, the [id number] and the daughter at the bedside. Getting IV fluids because of renal function. Decreased oral intake. Past Medical History Past Medical History: Cancer, Hypertension Additional Past Medical History / Comment(s): lung cancer w/mets History of Any Multi-Drug Resistant Organisms: None Reported Past Surgical History: Appendectomy, Cholecystectomy, Pacemaker, Tubal Ligation Past Psychological History: No Psychological Hx Reported Smoking Status: Former smoker Past Alcohol Use History: None Reported Past Drug Use History: None Reported
[2023-11-22] MEDS: DEXTROSE 5%-0.45% NACL 1,000 ML IV SCH (17:25)
[2023-11-23 05:52] LABS: African American GFR (CKD) 14 (>60 ml/min/1.73 sqM); Anion Gap 13 mmol/L; Blood Urea Nitrogen 52 mg/dL (7-17); Calcium 8.1 mg/dL (8.4-10.2); Carbon Dioxide 20 mmol/L (22-30); Chloride 95 mmol/L (98-107); Glucose 118 mg/dL (74-99); Non-African American GFR(CKD) 13 (>60 ml/min/1.73 sqM); Sodium 128 mmol/L (137-145)
--- NOTE | 2023-11-23 08:02 | P.PN ---
Subjective Progress Note Date: 11/23/23 78-year-old female who apparently has a history of metastatic lung cancer. She was sent to the hospital, for possible thoracentesis. She apparently has a history of a previous thoracentesis done in [place]. She has never been to this hospital before. She has a history of lung cancer with metastasis, h ypertension, and previous pacemaker insertion. She did have a thoracentesis in the past, down to [place], where 1.3 L of fluid was removed. She was seen already by cardiothoracic surgery, because apparently, she was interested in a Pleurx catheter. The patient is currently on 2 L of oxygen. She is getting half-normal saline at 75 cc an hour. Laboratory data includes a white count 14, hemoglobin 10.8, hematocrit 33.5, platelet count of 647,000. Coagulation studies are normal. Sodium 135, potassium 3.5, chlorides 95, CO2 27, anion gap 13, BUN 34, creatinine 1.25. Calcium is 10.7. Alkaline phosphatase is 220. Total protein is 8.3. Testing for influenza, RSV, coronavirus were all nega tive. Chest x-ray suggest a right basilar infiltrate and small effusion. There is also some cardiomegaly, and venous congestion. CT angiogram showed no evidence of pulmonary embolism, a right hilar mass with encasement of the right lower lobe bronchus, and an expansile lesion in the posterior left fifth rib The patient is seen today November 23, 2023 in follow-up on the regular medical floor. She is currently resting comfortably in bed. Awake and alert in no acute distress. She states she slept well last night. No worsening shortness of breath, cough or congestion. She is maintaining O2 saturations in the 90s on 3 L/min per nasal cannula. She is afebrile. Hemodynamically stable. She is receiving D5 and half-normal saline at 100 MLS per hour. Sodium 128. Potassium 4.0. Bicarb 20. BUN 52. Creatinine 3.32. Ultrasound of the right chest revealed a pocket of only 1.5 cm. No plans for thoracentesis or Pleurx catheter placement at this time. He had been seen by medical oncology and the patient is known to have lytic lesions in the cervical, thoracic and lumbar spine as well as the left iliac bone. There is also bilateral renal gland thickening concerning for metastasis. She had a previous biopsy of the left iliac bone consistent with adenocarcinoma. She may be considered for palliative radiation therapy. Objective - Vital Signs Vital signs: Vital Signs Temp 97.3 F L 11/23/23 07:39 Pulse 85 11/23/23 07:39 Resp 18 11/23/23 07:39 BP 90/56 11/23/23 07:39 Pulse Ox 92 L 11/23/23 07:39 FiO2 Intake & Output 11/22/23 11/23/23 11/23/23 18:59 06:59 18:59 Intake Total 400 1380 Balance 400 1380 Intake: Intake, IV Titration 1200 Amount Dextrose 5%-0.45% NaCl 1, 1200 000 ml @ 100 mls/hr IV . Q10H JJ Rx#:[id number] Oral 400 180 Other: # Voids 1 1 - Exam GENERAL EXAM: Alert, very pleasant frail 78-year-old female, on 3 L nasal cannula, fairly comfortable in no apparent distress. HEAD: Normocephalic. EYES: Normal reaction of pupils, equal size. NOSE: Clear with pink turbinates. THROAT: No erythema or exudates. NECK: No masses, no JVD. CHEST: No chest wall deformity. LUNGS: Equal air entry with no crackles, wheeze, rhonchi or dullness. CVS: S1 and S2 normal with no audible murmur, regular rhythm. ABDOMEN: No hepatosplenomegaly, normal bowel sounds, no guarding or rigidity. SPINE: No scoliosis or deformity SKIN: No rashes CENTRAL NERVOUS SYSTEM: No focal deficits, tone is normal in all 4 extremities. EXTREMITIES: There is no peripheral edema. No clubbing, no cyanosis. Peripheral pulses are intact. - Labs CBC & Chem 7: 11/21/23 12:57 11/23/23 04:39 Labs: Abnormal Lab Results - Last 24 Hours (Table) 11/22/23 11/23/23 Range/Units 08:28 04:39 Sodium 132 L 128 L (137-145) mmol/L Chloride 96 L 95 L (98-107) mmol/L Carbon Dioxide 20 L (22-30) mmol/L BUN 45 H 52 H (7-17) mg/dL Creatinine 2.07 H 3.32 H (0.52-1.04) mg/dL Glucose 106 H 118 H (74-99) mg/dL Calcium 8.1 L (8.4-10.2) mg/dL Assessment and Plan Assessment: History of metastatic lung cancer, with previous right-sided pleural effusion, S/P thoracentesis, in [place]. Metastatic lesions throughout the bone and possibly bilateral renal glands. Bone biopsy was consistent with adenocarcinoma. She is following here with medical oncology and radiation oncology Shortness of breath, secondary to lung cancer, and right-sided pleural effusion. History of hypertension. Mild hypercalcemia, possibly related to lung cancer, and bony metastasis. History of pacemaker insertion. : The patient was seen and evaluated Labs and medications reviewed No plans for thoracentesis or Pleurx catheter at this admission She is considering palliative radiation in the outpatient setting She is also planning to move to [place] following treatment Titrate the FiO2 as tolerated Evaluate for possible home oxygen Home once cleared by medical oncology This patient was seen independently by the pulmonary nurse practitioner addressing pulmonary issues I have personally seen and examined the patient, performed the documentation and the assessment and plan as written. Number of minutes spent on the visit: 24.
[2023-11-23] MEDS: ACETAMINOPHEN TAB 325 MG TAB PO PRN (08:26)
[2023-11-23] MEDS ORDERED: LORazepam 0.5 MG TAB PO PRN (12:46)
--- NOTE | 2023-11-23 13:22 | P.PN ---
Progress Note - Text Progress Note Date: 11/23/23 Chief Complaint: Short of breath This is a pleasant 78-year-old patient. Patient was in [place] diagnosed with pneumonia subsequently was diagnosed with lung cancer. She has lung cancer with metastasis to the bone. Diagnosed in September of this year. She has been drained once for pleural effusion. Seeing Dr. Perez. Has been having weight loss and some loss of appetite. Patient presents with worsening shortness of breath. Denies any fever and chills. No cough. Sitting up in a chair. Patient was a light smoker for several years in the past. Plan outpatient was to put in a drain on the right chest wall. November 21: Patient found to have not much fluid on the right side. Seen by cardiothoracic team. His Pleurx will not be placed right now. Patient is currently living with her [id number] nearby. Patient daughter's lives 6 hours away in [facility]. Patient is for palliative care currently. She plans to take the patient back. Was explained that once the fluid builds up a bit then the Pleurx can be placed. Getting IV fluids. Tired. Decreased oral intake. November 22: Radiation treatment has been ordered by Dr. Alvaro Perez. For tomorrow. Patient is drinking some Ensure. Diet. On nasal cannula. Worsening renal failure. Could be contrast-induced injury. Getting IV fluids. Consult nephrology. Active Medications Acetaminophen (Acetaminophen Tab 325 Mg Tab) 650 mg PO Q6HR PRN PRN Reason: Mild Pain or Fever > 100.5 Last Admin: 11/23/23 08:26 Dose: 650 mg Acetaminophen/Codeine Phosphate (Acetaminophen-Codeine 300-30mg Tab) 1 each PO Q4HR PRN PRN Reason: Pain Last Admin: 11/22/23 20:37 Dose: 1 each Bisacodyl (Bisacodyl 5 Mg Tablet.) 5 mg PO BID PRN PRN Reason: Constipation Last Admin: 11/23/23 08:27 Dose: 5 mg Calcium Carbonate/Glycine (Calcium Carbonate 500 Mg Chewable) 1,000 mg PO Q4HR PRN PRN Reason: Dyspepsia Enoxaparin Sodium (Enoxaparin 30 Mg/0.3 Ml Syringe) 30 mg SQ DAILY JJ Last Admin: 11/23/23 08:26 Dose: 30 mg Famotidine (Famotidine 20 Mg Tab) 20 mg PO HS [facility] Last Admin: 11/22/23 15:25 Dose: 20 mg Dextrose/Sodium Chloride (Dextrose 5%-1/2ns Iv Soln) 1,000 mls @ 100 mls/hr IV .Q10H [facility] Last Admin: 11/23/23 12:35 Dose: 100 mls/hr Lactulose (Lactulose 20 Gm/30 Ml Cup) 20 gm PO DAILY PRN PRN Reason: Constipation Lorazepam (Lorazepam 0.5 Mg Tab) 0.5 mg PO Q8HR PRN PRN Reason: Anxiety Melatonin (Melatonin 3 Mg Tablet) 3 mg PO HS PRN PRN Reason: Insomnia Miscellaneous Information (Potassium Replacement Protocol 1 Each Misc) 1 each MISCELLANE DAILY PRN; Protocol PRN Reason: Per Protocol Naloxone HCl (Naloxone 0.4 Mg/Ml 1 Ml Vial) 0.2 mg IV Q2M PRN PRN Reason: Opioid Reversal Ondansetron HCl (Ondansetron 4 Mg/2 Ml Vial) 4 mg IVP Q8HR PRN PRN Reason: Nausea And Vomiting Last Admin: 11/22/23 05:21 Dose: 4 mg Zolpidem Tartrate (Zolpidem 5 Mg Tab) 2.5 mg PO HS PRN PRN Reason: Insomnia Last Admin: 11/21/23 20:56 Dose: 2.5 mg Social history: Patient smoked about average of 3 cigarettes a day for about 35 years and smoked from the age of 13 to about 48. Patient lives with her [id number] Physical examination: VITAL SIGNS: 97.9, 72, 21, 94 x 59, 98% on 3 L GENERAL: BMI 23.2, reclining in bed, tired d. EYES: Pupils equal. Conjunctiva marie l. HEENT: External appearance of nose and ears normal, oral cavity grossly normal. NECK: JVD not raised; masses not palpable. HEART: First and second heart sounds are normal; no edema. LUNGS: Respiratory rate increased, diminished breath sounds ABDOMEN: Soft, nontender, liver spleen not palpable, no masses palpable. PSYCH: Alert and oriented x3; mood and affect tired. MUSCULOSKELETAL:No Clubbing/cyanosis;muscles-grossly intact. OA INVESTIGATIONS, reviewed in the clinical context: November 22: Sodium 128 potassium 4 BUN 52 creatinine 3.32 November 21, 2023: White count 14 hemoglobin 10.8 platelets 647 sodium 135 potassium 3.1. 34 creatinine 1.25 Influenza type A, type B, RSV, COVID-19: Not detected EKG tracing personally reviewed by me-ventricular pacemaker CT angio chest for PE: No PE. Right hilar mass with encasement of the right upper lobe bronchus. Possibly additional rib lesions. Expansile lesion posterior left fifth rib. Chest x-ray film personally reviewed by me-possible right lower lobe atelectasis/collapse. Possible fluid Assessment plan: -Lung cancer with bone metastasis. Patient is following with oncologist Dr ferrous. Perez. Radiation oncology consulted to see if any benefit -Right pleural effusion. Patient had thoracentesis x 1 in [place].. Sent in for the same. Supposed to have a right-sided Pleurx catheter. Inadequate amount of right pleural effusion for Pleurx catheter. Present time no further intervention. -Essential hypertension. Currently blood pressure running on the lower side. Cozaar and diuretic have been stopped -Acute kidney injury. Possibly ATN from contrast-induced nephropathy.: Worsening Cozaar and diuretics have been held. IV fluids. Renal ultrasound. -Hypokalemia from diuretic Replace potassium . -DNR Renal ultrasound. Strict I's and O's. Consult nephrology. Radiation oncology consulted. Past Medical History Past Medical History: Cancer, Hypertension Additional Past Medical History / Comment(s): lung cancer w/mets History of Any Multi-Drug Resistant Organisms: None Reported Past Surgical History: Appendectomy, Cholecystectomy, Pacemaker, Tubal Ligation Past Psychological History: No Psychological Hx Reported Smoking Status: Former smoker Past Alcohol Use History: None Reported Past Drug Use History: None Reported
[2023-11-23] MEDS ORDERED: SUCRALFATE 1 GM TAB PO PRN (13:53)
--- NOTE | 2023-11-23 14:22 | P.PN ---
Subjective Progress Note Date: 11/23/23 Principal diagnosis: Metastatic NSCLC -No acute events overnight -Noted sleeping well, but having excess drowsiness per daughter at bedside -Reflux was improved after Pepcid, but is currently having reflux due to what she notes as morgan yousif -Denies any back pain, but continued dyspnea Objective - Vital Signs Vital signs: Vital Signs Temp 97.9 F 11/23/23 12:49 Pulse 72 11/23/23 12:49 Resp 21 11/23/23 12:49 BP 94/59 11/23/23 12:49 Pulse Ox 98 11/23/23 12:49 FiO2 Intake & Output 11/22/23 11/23/23 11/23/23 18:59 06:59 18:59 Intake Total 400 1380 Balance 400 1380 Intake: Intake, IV Titration 1200 Amount Dextrose 5%-0.45% NaCl 1, 1200 000 ml @ 100 mls/hr IV . Q10H JJ Rx#:[id number] Oral 400 180 Other: # Voids 1 1 - Constitutional General appearance: Present: cooperative, mild distress - EENT Eyes: Present: EOMI - Respiratory Respiratory: right: diminished (Right lung base) - Cardiovascular Rhythm: regular - Gastrointestinal General gastrointestinal: Present: soft. Absent: distended - Integumentary Integumentary: Present: pale - Neurologic Neurologic: Present: CNII-XII intact. Absent: focal deficits - Labs CBC & Chem 7: 11/21/23 12:57 11/23/23 04:39 Labs: Abnormal Lab Results - Last 24 Hours (Table) 11/23/23 Range/Units 04:39 Sodium 128 L (137-145) mmol/L Chloride 95 L (98-107) mmol/L Carbon Dioxide 20 L (22-30) mmol/L BUN 52 H (7-17) mg/dL Creatinine 3.32 H (0.52-1.04) mg/dL Glucose 118 H (74-99) mg/dL Calcium 8.1 L (8.4-10.2) mg/dL Assessment and Plan (1) Non-small cell carcinoma of right lung, stage 4 Current Visit: Yes Status: Acute Code(s): C34.91 - MALIGNANT NEOPLASM OF UNSP PART OF RIGHT BRONCHUS OR LUNG SNOMED Code(s): 494853704 (2) GERD (gastroesophageal reflux disease) Current Visit: Yes Status: Acute Code(s): K21.9 - GASTRO-ESOPHAGEAL REFLUX DISEASE WITHOUT ESOPHAGITIS SNOMED Code(s): 257403905 Plan: #Metastatic adenocarcinoma of the right lung -Diagnosed in September 2023 in [place] -Large right pleural effusion along with metastases to the bone in the spine and pelvis and possible bilateral adrenal gland metastases -Circulating tumor DNA revealed no targetable mutations -Following discussion in clinic, she elected to focus on managing underlying symptoms as opposed to pursuing cancer directed treatment -She did have diminished breath sounds in the right lung base on exam and has had progressive dyspnea since her visit on 11/19/2023 -At that time, there was clinical concern for potential recurrent pleural effusion and was advised to present to the hospital for placement of possible catheter (pigtail versus Pleurx) -CTA of the chest reveals no evidence of pulmonary embolism or infection, but did note encasement of right lower lobe bronchus by right hilar mass with a small right pleural effusion -Ultrasound of the chest does not appear to show significant fluid pocket -It appears that her dyspnea is likely due to the encasement of the right lower lobe bronchus by the hilar mass as opposed to malignant effusion -Cardiothoracic surgery and pulmonology to defer on catheter placement or thoracentesis, which I agree with -Radiation oncology consulted to see if she would benefit from palliative radiation to the right hilar mass -Continue Tylenol with codeine every 4 hours as needed -Due to excess sedation, we will decrease Ativan dose to 0.5 mg every 8 hours -With regards to her disposition, the plan was for her to go with her daughter, who lives in [place], to their [facility] and live there on a permanent basis #GERD -Started on Pepcid 20 mg twice daily with relief, but noted to have significant discomfort on today's encounter -Sucralfate 1 g tablet every 4 hours as needed ordered today, which can be mixed with water to create suspension Her case was discussed with attending physician Dr. Simpson over the phone and her daughter and daughter in-law today at bedside Philipp Perez MD Time with Patient: Greater than 30
--- NOTE | 2023-11-24 01:21 | US ---
EXAMINATION TYPE: US kidneys/renal and bladder DATE OF EXAM: 11/23/2023 COMPARISON: CT Chest CLINICAL INDICATION: Female, 78 years old with history of Worsening renal failure; Renal Failure EXAM MEASUREMENTS: Right Kidney: 11.3 x 4.4 x 4.5 cm Left Kidney: 11.3 x 4.5 x 4.6 cm Right Kidney: No evidence of hydro, possible calculus lower pole= 0.7 cm Left Kidney: No evidence of hydro Bladder: wnl Bilateral Jets seen: No There is no evidence for hydronephrosis at this point in time. Increased cortical echogenicity bilate rally. No masses are identified on images saved. The urinary bladder is not greatly distended. Cisco ateral ureteral jets are not seen. IMPRESSION: No hydronephrosis seen bilaterally.
[2023-11-24 06:52] LABS: African American GFR (CKD) 16 (>60 ml/min/1.73 sqM); Anion Gap 8 mmol/L; Blood Urea Nitrogen 60 mg/dL (7-17); Carbon Dioxide 20 mmol/L (22-30); Chloride 97 mmol/L (98-107); Glucose 107 mg/dL (74-99); Non-African American GFR(CKD) 14 (>60 ml/min/1.73 sqM); Potassium 4.2 mmol/L (3.5-5.1); Sodium 125 mmol/L (137-145)
--- NOTE | 2023-11-24 09:56 | P.NPCON ---
History of Present Illness - Reason for Consult acute renal failure - History of Present Illness Reason for consultation: Acute kidney injury History of present illness: Patient is a 78-year-old female seen in renal consultation for acute kidney injury. Patient's creatinine on admission was 1.25 and peaked at 3.32 yesterday. It is fairly stable at 3.1 today. Patient has history of stage IV breast cancer with metastatic disease. Sodium level has been gradually decreasing and is down to 125 today. Patient is currently maintained on half- normal saline running at 100 cc an hour. Oral intake is poor. Patient has history of pleural effusions and has undergone thoracentesis in the past. No plans for thoracentesis this admission. Denies vomiting or diarrhea. Blood pressure on the lower side. Currently on 3 L nasal cannula. I also see chlorthalidone as well as losartan on her home medication list which are currently held. Vital signs are stable. General: No acute distress. HEENT: Head exam is unremarkable. On nasal cannula. LUNGS: No audible rhonchi or wheezes. HEART: Rate and Rhythm are regular. ABDOMEN: Nontender. EXTREMITITES: No edema. Past Medical History Past Medical History: Cancer, Hypertension Additional Past Medical History / Comment(s): lung cancer w/mets History of Any Multi-Drug Resistant Organisms: None Reported Past Surgical History: Appendectomy, Cholecystectomy, Pacemaker, Tubal Ligation Past Anesthesia/Blood Transfusion Reactions: No Reported Reaction Type of Cardiac Device: Permanent Pacemaker Device Placement Date:: 2020 Past Psychological History: No Psychological Hx Reported Smoking Status: Former smoker (Quit smoking when she was in her 50s) Past Alcohol Use History: None Reported Past Drug Use History: None Reported - Past Family History Mother Family Medical History: CVA/TIA Father Additional Family Medical History / Comment(s): Brain tumor Medications and Allergies Home Medications Medication Instructions Recorded Confirmed Type Aspirin [[place] Aspirin EC] 81 mg PO DAILY 11/21/23 11/21/23 History Chlorthalidone 50 mg PO DAILY 11/21/23 11/21/23 History Cholecalciferol [Vitamin D3 (25 25 mcg PO DAILY 11/21/23 11/21/23 History Mcg = 1000 Iu)] Losartan Potassium [Cozaar] 100 mg PO DAILY 11/21/23 11/21/23 History bisacodyL [Dulcolax] 5 mg PO BID PRN 11/21/23 11/21/23 History Allergies Allergy/AdvReac Type Severity Reaction Status Date / Time No Known Allergies Allergy Verified 11/21/23 15:16 Physical Exam Vitals: Vital Signs Temp Pulse Resp BP Pulse Ox 11/24/23 08:17 97 11/24/23 07:25 98.2 F 117 H 18 95/58 93 L 11/24/23 01:19 98.1 F 82 18 96/60 93 L 11/23/23 20:00 98.5 F 99 16 94/58 99 11/23/23 12:49 97.9 F 72 21 94/59 98 Intake and Output 11/23/23 11/24/23 11/24/23 22:59 06:59 14:59 Intake Total 340 Balance 340 Intake: Oral 340 Other: Voiding Method Toilet Bedpan # Voids 1 Results - Lab Results Most recent lab results Calcium 8.0 mg/dL (8.4-10.2) L 11/24/23 05:55 Magnesium 1.8 mg/dL (1.6-2.3) 11/22/23 08:28 11/21/23 12:57 11/24/23 05:55 Assessment and Plan Plan: Assessment: 1. Acute kidney injury secondary to ATN secondary to hypotension and further worsen with the use of diuretic and losartan. Creatinine peaked at 3.32 this admission and is down to 3.1 today. 2. Hyponatremia secondary to poor solute intake and hypotonic fluid infusion. 3. Metabolic acidosis secondary to acute kidney injury and IV fluids. 4. Metastatic breast cancer. Oncology following. Plan: Change half-normal saline to normal saline to be run at 50 cc an hour. Add 1500 cc fluid restriction. Encouraged oral intake, especially protein. Check serum and urine osmolality and urine sodium level. Check TSH. Check a.m. cortisol level. Salt tab x 1 dose today. Repeat labs in the morning. Continue to hold all antihypertensives at this time. Thank you for the consultation. I will continue to follow the patient with you during her hospital stay.
[2023-11-24] MEDS: PSYLLIUM HUSK 100% 6 GM PACKET PO SCH (12:03)
[2023-11-24] MEDS: SODIUM CHLORIDE TAB 1 GM TAB PO STA (12:04)
[2023-11-24] MEDS: SODIUM CHLORIDE 0.9% 1,000 ML IV SCH (12:05)
--- NOTE | 2023-11-24 12:08 | P.CONS ---
History of Present Illness - Reason for Consult Consult date: 11/24/23 Adenocarcinoma of the right lung Requesting physician: Philipp Perez - Chief Complaint "I am short of breath" - History of Present Illness Ms. Gamez is an 78-year-old female with metastatic adenocarcinoma of the right lung. She presents with right hilar mas causing postobstructive atelectasis and hypoxia. The patient was previously residing in [place]. There, in 09/2023, she was diagnosed with metastatic adenocarcinoma of the lung with a malignant pleural effusion. She also had a biopsy of a left iliac bone confirming adenocarcinoma. She relocated to [place]. She saw Dr. Perez as an outpatient and declined systemic therapy, expressing an intent to go home in [place] for home hospice. Recently, she has had progressively worsening dyspnea and presented to the . CTA chest demonstrated right hilar mass with encasement of the RLL bronchus. Also noted was osseous rib lesions. She was seen by thoracic surgery with no plans for a PleurX catheter. She was not on oxygen prior to admission. Today, she notes she is doing okay. She does have a pacemaker. She has never had radiation therapy. Her case was discussed with her daughter (PATRICA). Review of Systems as per HPI Past Medical History Past Medical History: Cancer, Hypertension Additional Past Medical History / Comment(s): lung cancer w/mets History of Any Multi-Drug Resistant Organisms: None Reported Past Surgical History: Appendectomy, Cholecystectomy, Pacemaker, Tubal Ligation Past Anesthesia/Blood Transfusion Reactions: No Reported Reaction Type of Cardiac Device: Permanent Pacemaker Device Placement Date:: 2020 Past Psychological History: No Psychological Hx Reported Smoking Status: Former smoker (Quit smoking when she was in her 50s) Past Alcohol Use History: None Reported Past Drug Use History: None Reported - Past Family History Mother Family Medical History: CVA/TIA Father Additional Family Medical History / Comment(s): Brain tumor Medications and Allergies Home Medications Medication Instructions Recorded Confirmed Type Aspirin [[place] Aspirin EC] 81 mg PO DAILY 11/21/23 11/21/23 History Chlorthalidone 50 mg PO DAILY 11/21/23 11/21/23 History Cholecalciferol [Vitamin D3 (25 25 mcg PO DAILY 11/21/23 11/21/23 History Mcg = 1000 Iu)] Losartan Potassium [Cozaar] 100 mg PO DAILY 11/21/23 11/21/23 History bisacodyL [Dulcolax] 5 mg PO BID PRN 11/21/23 11/21/23 History Allergies Allergy/AdvReac Type Severity Reaction Status Date / Time No Known Allergies Allergy Verified 11/21/23 15:16 Physical Exam Vitals: Vital Signs Temp Pulse Resp BP Pulse Ox 11/24/23 08:17 97 11/24/23 07:25 98.2 F 117 H 18 95/58 93 L 11/24/23 01:19 98.1 F 82 18 96/60 93 L 11/23/23 20:00 98.5 F 99 16 94/58 99 11/23/23 12:49 97.9 F 72 21 94/59 98 Intake and Output 11/23/23 11/24/23 11/24/23 22:59 06:59 14:59 Intake Total 340 Balance 340 Intake: Oral 340 Other: Voiding Method Toilet Bedpan # Voids 1 - Constitutional General appearance: average body habitus, no acute distress - Respiratory 3L oxygen Respiratory: negative: prolonged expiration, prolonged inspiration - Psychiatric appears somewhat confused during evaluation, but per daughter and HPOA, has capacity to make medical decisions Results CBC & Chem 7: 11/21/23 12:57 11/24/23 05:55 Labs: Abnormal Lab Results - Last 24 Hours (Table) 11/24/23 Range/Units 05:55 Sodium 125 L (137-145) mmol/L Chloride 97 L (98-107) mmol/L Carbon Dioxide 20 L (22-30) mmol/L BUN 60 H (7-17) mg/dL Creatinine 3.10 H (0.52-1.04) mg/dL Glucose 107 H (74-99) mg/dL Calcium 8.0 L (8.4-10.2) mg/dL Assessment and Plan Assessment: Ms. Gamez is an 78-year-old female with metastatic adenocarcinoma of the right lung. She presents with right hilar mas causing postobstructive atelectasis and hypoxia. Plan: The patient has metastatic adenocarcinoma of pulmonary origin and plans to go to home hospice. Due to increasing oxygen requirement, the patient and daughter are motivated to pursue palliative radiation therapy to the right lung. Given the location in the hilar region and postobstructive changes, I do think her respiratory compromise is at least in part due to this lesion, and she is an appropriate candidate for palliative treatment. I explained that radiation is preceded by a CT simulation. I will plan on 2 daily treatments. I explained potential side effects of treatment, including fatigue and cough. She will undergo CT simulation tomorrow with treatment to tentatively begin on Friday. Ashkan Anaya MD Radiation Oncology Time with Patient: Greater than 30
--- NOTE | 2023-11-24 19:33 | P.PN ---
Subjective Progress Note Date: 11/24/23 On today's evaluation on 11/24/2023, the patient is lethargic and weak and she does have some shortness of breath at baseline. I reviewed the CAT scan of the chest. The patient has extensive stage IV adenocarcinoma of the lung. The patient had a loculated small right-sided pleural effusion. There is also a right hilar mass encasing the right lower lobe bronchus. There is also expansile lesion posterior left fifth rib. There are also additional 2 rib involvement on the right. The patient continues to have hyponatremia and a sodium level is at 125. Potassium level is at 4.2. BUN is at 60 with a creatinine of 3.1 hide the patient sustained an acute kidney injury and the creatinine is gradually improving. The patient is currently on normal saline 30 to 50 cc an hour. He is on Lovenox for DVT prophylaxis. She was seen by radiation oncology and the patient is being considered for palliative radiation therapy to the chest. Family is interested also in hospice care. Objective - Vital Signs Vital signs: Vital Signs Temp 98.2 F 11/24/23 11:59 Pulse 104 H 11/24/23 13:59 Resp 18 11/24/23 11:59 BP 93/54 11/24/23 11:59 Pulse Ox 96 11/24/23 13:59 FiO2 Intake & Output 11/24/23 11/24/23 11/25/23 06:59 18:59 06:59 Intake Total 236 Balance 236 Intake: Oral 236 Other: Voiding Method Toilet Bedpan Bedpan Diaper - Exam GENERAL EXAM: Alert, very pleasant frail 78-year-old female, on 3 L nasal can nula, fairly comfortable in no apparent distress. The patient is lethargic and quite weak at this point. HEAD: Normocephalic. EYES: Normal reaction of pupils, equal size. NOSE: Clear with pink turbinates. THROAT: No erythema or exudates. NECK: No masses, no JVD. CHEST: No chest wall deformity. LUNGS: Equal air entry with no crackles, wheeze, rhonchi or dullness. CVS: S1 and S2 normal with no audible murmur, regular rhythm. ABDOMEN: No hepatosplenomegaly, normal bowel sounds, no guarding or rigidity. SPINE: No scoliosis or deformity SKIN: No rashes CENTRAL NERVOUS SYSTEM: No focal deficits, tone is normal in all 4 extremities. EXTREMITIES: There is no peripheral edema. No clubbing, no cyanosis. Peripheral pulses are intact. - Labs CBC & Chem 7: 11/21/23 12:57 11/24/23 05:55 Labs: Abnormal Lab Results - Last 24 Hours (Table) 11/24/23 Range/Units 05:55 Sodium 125 L (137-145) mmol/L Chloride 97 L (98-107) mmol/L Carbon Dioxide 20 L (22-30) mmol/L BUN 60 H (7-17) mg/dL Creatinine 3.10 H (0.52-1.04) mg/dL Glucose 107 H (74-99) mg/dL Calcium 8.0 L (8.4-10.2) mg/dL Assessment and Plan Plan: Stage IV pulm adenocarcinoma. The patient has metastatic lung cancer, with previous right-sided pleural effusion, S/P thoracentesis, in [place]. Metastatic lesions throughout the bone and possibly bilateral renal glands. Bone biopsy was consistent with adenocarcinoma. She is following here with medical oncology and radiation oncology. The patient is interested in hospice. The patient is being offered packed radiation therapy to the right lung. The value of this treatment is not clear to me. It may be palliative at best. Not considering any major improvement in respiratory status with this treatment. Acute hypoxic respiratory failure currently on 3 L of oxygen by nasal cannula Shortness of breath, secondary to lung cancer, and right-sided pleural effusion. History of hypertension. Mild hypercalcemia, possibly related to lung cancer, and bony metastasis. The calcium level has normalized Hyponatremia, rule out underlying cancer due to SIADH Acute kidney injury, creatinine is stable and slightly improved compared to yesterday History of pacemaker insertion. Plan Gentle hydration while monitoring the sodium level and renal function. May need to use demeclocycline if the sodium continues to drop further. Monitor renal function Radiation oncology's been consulted and the patient is being considered for Perative radiation therapy, success is limited at best No plans for thoracentesis or Pleurx catheter at this admission She is also planning to move to [place] following treatment Titrate the FiO2 as tolerated Evaluate for possible home oxygen Prognosis extremely poor based on above-mentioned comorbidities.
--- NOTE | 2023-11-24 20:52 | P.PN ---
Progress Note - Text Progress Note Date: 11/24/23 Chief Complaint: Short of breath This is a pleasant 78-year-old patient. Patient was in [place] diagnosed with pneumonia subsequently was diagnosed with lung cancer. She has lung cancer with metastasis to the bone. Diagnosed in September of this year. She has been drained once for pleural effusion. Seeing Dr. Perez. Has been having weight loss and some loss of appetite. Patient presents with worsening shortness of breath. Denies any fever and chills. No cough. Sitting up in a chair. Patient was a light smoker for several years in the past. Plan outpatient was to put in a drain on the right chest wall. November 21: Patient found to have not much fluid on the right side. Seen by cardiothoracic team. His Pleurx will not be placed right now. Patient is currently living with her [id number] nearby. Patient daughter's lives 6 hours away in [facility]. Patient is for palliative care currently. She plans to take the patient back. Was explained that once the fluid builds up a bit then the Pleurx can be placed. Getting IV fluids. Tired. Decreased oral intake. November 22: Radiation treatment has been ordered by Dr. Alvaro Perez. For tomorrow. Patient is drinking some Ensure. Diet. On nasal cannula. Worsening renal failure. Could be contrast-induced injury. Getting IV fluids. Consult nephrology. November 23: Patient was seen by Dr. Caldera from radiation oncology. Patient to get radiation treatment for palliative for the hilar mass being causing postobstructive atelectasis and hypoxia. CT simulation will be done tomorrow and just will start on Friday. Creatinine that was going up has now started to come down. Sodium also down as patient not really eating much. Active Medications Acetaminophen (Acetaminophen Tab 325 Mg Tab) 650 mg PO Q6HR PRN PRN Reason: Mild Pain or Fever > 100.5 Last Admin: 11/23/23 08:26 Dose: 650 mg Acetaminophen/Codeine Phosphate (Acetaminophen-Codeine 300-30mg Tab) 1 each PO Q4HR PRN PRN Reason: Pain Last Admin: 11/24/23 18:37 Dose: 1 each Bisacodyl (Bisacodyl 5 Mg Tablet.) 5 mg PO BID PRN PRN Reason: Constipation Last Admin: 11/23/23 08:27 Dose: 5 mg Calcium Carbonate/Glycine (Calcium Carbonate 500 Mg Chewable) 1,000 mg PO Q4HR PRN PRN Reason: Dyspepsia Enoxaparin Sodium (Enoxaparin 30 Mg/0.3 Ml Syringe) 30 mg SQ DAILY [facility] Last Admin: 11/24/23 08:29 Dose: 30 mg Famotidine (Famotidine 20 Mg Tab) 20 mg PO HS [facility] Last Admin: 11/24/23 19:49 Dose: 20 mg Sodium Chloride (Saline 0.9%) 1,000 mls @ 50 mls/hr IV .Q20H [facility] Last Admin: 11/24/23 12:05 Dose: 50 mls/hr Lactulose (Lactulose 20 Gm/30 Ml Cup) 20 gm PO DAILY PRN PRN Reason: Constipation Lorazepam (Lorazepam 0.5 Mg Tab) 0.5 mg PO Q8HR PRN PRN Reason: Anxiety Melatonin (Melatonin 3 Mg Tablet) 3 mg PO HS PRN PRN Reason: Insomnia Miscellaneous Information (Potassium Replacement Protocol 1 Each Misc) 1 each MISCELLANE DAILY PRN; Protocol PRN Reason: Per Protocol Naloxone HCl (Naloxone 0.4 Mg/Ml 1 Ml Vial) 0.2 mg IV Q2M PRN PRN Reason: Opioid Reversal Ondansetron HCl (Ondansetron 4 Mg/2 Ml Vial) 4 mg IVP Q8HR PRN PRN Reason: Nausea And Vomiting Last Admin: 11/22/23 05:21 Dose: 4 mg Psyllium Hydrophilic Mucilloid (Psyllium Husk 100% 6 Gm Packet) 6 gm PO DAILY [facility] Last Admin: 11/24/23 12:03 Dose: Not Given Sucralfate (Sucralfate 1 Gm Tab) 1 gm PO Q4H PRN PRN Reason: Heartburn Zolpidem Tartrate (Zolpidem 5 Mg Tab) 2.5 mg PO HS PRN PRN Reason: Insomnia Last Admin: 11/21/23 20:56 Dose: 2.5 mg Social history: Patient smoked about average of 3 cigarettes a day for about 35 years and smoked from the age of 13 to about 48. Patient lives with her [id number] Physical examination: VITAL SIGNS: 98.9, 103, 18, 103 x 59, 96% on 3 L GENERAL: Lying in bed, tired EYES: Pupils equal. Conjunctiva marie l. HEENT: External appearance of nose and ears normal, oral cavity grossly normal. NECK: JVD not raised; masses not palpable. HEART: First and second heart sounds are normal; no edema. LUNGS: Respiratory rate increased, diminished breath sounds ABDOMEN: Soft, nontender, liver spleen not palpable, no masses palpable. PSYCH: Alert and oriented x3; mood and affect tired. MUSCULOSKELETAL:No Clubbing/cyanosis;muscles-grossly intact. OA INVESTIGATIONS, reviewed in the clinical context: November 23: Sodium 125 potassium 4.2 bicarb 20 BUN 60 creatinine 3.10 serum osmolality 296 November 22: Sodium 128 potassium 4 BUN 52 creatinine 3.32 November 21, 2023: White count 14 hemoglobin 10.8 platelets 647 sodium 135 potassium 3.1. 34 creatinine 1.25 Influenza type A, type B, RSV, COVID-19: Not detected EKG tracing personally reviewed by me-ventricular pacemaker CT angio chest for PE: No PE. Right hilar mass with encasement of the right upper lobe bronchus. Possibly additional rib lesions. Expansile lesion posterior left fifth rib. Chest x-ray film personally reviewed by me-possible right lower lobe atelectasis/collapse. Possible fluid Assessment plan: -Lung cancer with bone metastasis. Stage IV pulmonary adenocarcinoma. Patient is following with oncologist Dr ferrous. Perez. Radiation oncology palliative radiation -Right upper lobe atelectasis of the lung from carcinoma lung -Right pleural effusion. Patient had thoracentesis x 1 in [place].. Sent in for the same. Supposed to have a right-sided Pleurx catheter. Inadequate amount of right pleural effusion for Pleurx catheter. Present time no further intervention. -Essential hypertension. Currently blood pressure running on the lower side. Cozaar and diuretic have been stopped -Acute kidney injury. Possibly ATN from contrast-induced nephropathy, diuretics Cozaar.: Has leveled off slow to respond Cozaar and diuretics have been held. IV fluids. Renal ultrasound. -Acute hypoxic respiratory failure likely combination of atelectasis from lung cancer and COPD Oxygen -COPD no prior smoker DuoNeb -Hypokalemia from diuretic Replace potassium -Hypoosmolar hyponatremia from decreased oral intake Encourage oral intake . -DNR Encourage oral intake. Add DuoNeb. For palliative radiations hopefully Friday. Prognosis poor Past Medical History Past Medical History: Cancer, Hypertension Additional Past Medical History / Comment(s): lung cancer w/mets History of Any Multi-Drug Resistant Organisms: None Reported Past Surgical History: Appendectomy, Cholecystectomy, Pacemaker, Tubal Ligation Past Psychological History: No Psychological Hx Reported Smoking Status: Former smoker Past Alcohol Use History: None Reported Past Drug Use History: None Reported
[2023-11-24] MEDS ORDERED: FAMOTIDINE 20 MG TAB PO SCH (21:00)
[2023-11-24] MEDS: CALCIUM CARBONATE 500 MG CHEWABLE PO SCH (21:35)
[2023-11-25] MEDS: IPRATROPIUM-ALBUTEROL 3 ML NEB INHALATION SCH (00:38)
--- NOTE | 2023-11-25 10:30 | P.PN ---
Subjective Patient is seen in follow-up for acute kidney injury and hyponatremia. Sodium level 125 yesterday. Morning labs pending. Oral intake poor. Daughter present at bedside. Vital signs are stable. General: No acute distress. HEENT: Head exam is unremarkable. On nasal cannula. LUNGS: No audible rhonchi or wheezes. HEART: Rate and Rhythm are regular. ABDOMEN: Nontender. EXTREMITITES: No edema. Objective - Vital Signs Vital signs: Vital Signs Temp 98.8 F 11/25/23 07:56 Pulse 105 H 11/25/23 07:56 Resp 20 11/25/23 07:56 BP 115/70 11/25/23 07:56 Pulse Ox 98 11/25/23 08:42 FiO2 Intake & Output 11/24/23 11/25/23 11/25/23 18:59 06:59 18:59 Intake Total 236 840 Balance 236 840 Intake: Intake, IV Titration 600 Amount Sodium Chloride 0.9% 1, 600 000 ml @ 50 mls/hr IV . Q20H JJ Rx#:[id number] Oral 236 240 Other: Voiding Method Bedpan Bedside Commode Diaper Diaper Diaper # Voids 2 - Labs CBC & Chem 7: 11/21/23 12:57 11/24/23 05:55 Labs: Abnormal Lab Results - Last 24 Hours (Table) 11/24/23 11/24/23 Range/Units 05:55 17:10 Osmolality 296 H (275-295) mOsm/kg Ur Random Sodium <20 L (40-220) mmol/L Assessment and Plan Plan: Assessment: 1. Acute kidney injury secondary to ATN secondary to hypotension and further worsen with the use of diuretic and losartan. Creatinine peaked at 3.32 this admission -3.1 yesterday. No hydronephrosis noted on kidney ultrasound. 2. Hyponatremia secondary to poor solute intake and hypotonic fluid infusion. Was also on thiazide diuretic outpatient. Urine sodium less than 20. 3. Metabolic acidosis secondary to acute kidney injury and IV fluids. 4. Metastatic breast cancer. Oncology following. Plan: Maintain normal saline. Maintain 1500 cc fluid restriction. Encouraged oral intake, especially protein. Follow-up urine osmolality. Follow-up TSH. Follow-up a.m. cortisol level. Status post salt tab x 1 dose given yesterday. Morning labs pending.
[2023-11-25 11:11] LABS: BUN/Creat Ratio 30.72 Ratio (12.00-20.00); Blood Urea Nitrogen 55.3 mg/dL (9.0-27.0); Calcium 8.5 mg/dL (8.7-10.3); Carbon Dioxide 21.9 mmol/L (21.6-31.8); Chloride 99 mmol/L (96-109); Glucose 99 mg/dL (70-110); Magnesium 2.1 mg/dL (1.5-2.4); Potassium 4.3 mmol/L (3.5-5.5); Sodium 134 mmol/L (135-145)
--- NOTE | 2023-11-25 12:17 | P.PN ---
Subjective Progress Note Date: 11/25/23 On today's evaluation on 11/24/2023, the patient is lethargic and weak and she does have some shortness of breath at baseline. I reviewed the CAT scan of the chest. The patient has extensive stage IV adenocarcinoma of the lung. The patient had a loculated small right-sided pleural effusion. There is also a right hilar mass encasing the right lower lobe bronchus. There is also expansile lesion posterior left fifth rib. There are also additional 2 rib involvement on the right. The patient continues to have hyponatremia and a sodium level is at 125. Potassium level is at 4.2. BUN is at 60 with a creatinine of 3.1 hide the patient sustained an acute kidney injury and the creatinine is gradually improving. The patient is currently on normal saline 30 to 50 cc an hour. He is on Lovenox for DVT prophylaxis. She was seen by radiation oncology and the patient is being considered for palliative radiation therapy to the chest. Family is interested also in hospice care. On today's evaluation of 11/25/2023, patient is being seen for a follow-up. The patient is essentially the same as yesterday. At times, she was found to be confused. She underwent platelet radiation therapy to her left chest today. Creatinine is improving and the creatinine is down to 1.8 with a BUN of 55 as the patient is recovering from acute kidney injury. Sodium level is also is elevated at 134. Calcium level is within normal limits. The patient is on normal saline at rate of 50 cc an hour. No other significant events over the past 24 hours. Calcium level from today is at 8.5. The patient is comfortable on 3 L with a pulse ox of 98%. Objective - Vital Signs Vital signs: Vital Signs Temp 98.8 F 11/25/23 07:56 Pulse 105 H 11/25/23 11:58 Resp 20 11/25/23 07:56 BP 115/70 11/25/23 07:56 Pulse Ox 98 11/25/23 08:42 FiO2 Intake & Output 11/24/23 11/25/23 11/25/23 18:59 06:59 18:59 Intake Total 236 840 Balance 236 840 Intake: Intake, IV Titration 600 Amount Sodium Chloride 0.9% 1, 600 000 ml @ 50 mls/hr IV . Q20H [facility] Rx#:[id number] Oral 236 240 Other: Voiding Method Bedpan Bedside Commode Diaper Diaper Diaper # Voids 2 - Exam GENERAL EXAM: Alert, very pleasant frail 78-year-old female, on 3 L nasal cannula, fairly comfortable in no apparent distress. The patient is lethargic and quite weak at this point. HEAD: Normocephalic. EYES: Normal reaction of pupils, equal size. NOSE: Clear with pink turbinates. THROAT: No erythema or exudates. NECK: No masses, no JVD. CHEST: No chest wall deformity. LUNGS: Equal air entry with no crackles, wheeze, rhonchi or dullness. CVS: S1 and S2 normal with no audible murmur, regular rhythm. ABDOMEN: No hepatosplenomegaly, normal bowel sounds, no guarding or rigidity. SPINE: No scoliosis or deformity SKIN: No rashes CENTRAL NERVOUS SYSTEM: No focal deficits, tone is normal in all 4 extremities. EXTREMITIES: There is no peripheral edema. No clubbing, no cyanosis. Peripheral pulses are intact. - Labs CBC & Chem 7: 11/21/23 12:57 11/25/23 07:10 Labs: Abnormal Lab Results - Last 24 Hours (Table) 11/24/23 11/24/23 11/24/23 Range/Units 05:55 17:10 17:10 Sodium (135-145) mmol/L Anion Gap (4.00-12.00) mmol/L BUN (9.0-27.0) mg/dL Creatinine (0.6-1.5) mg/dL Est GFR (CKD-EPI) (>=60) BUN/Creatinine Ratio (12.00-20.00) Ratio Osmolality 296 H (275-295) mOsm/kg Calcium (8.7-10.3) mg/dL Cortisol (3.1-22.4) UG/DL Urine Osmolality 333 L (400-1100) mOsm/kg Ur Random Sodium <20 L (40-220) mmol/L 11/25/23 Range/Units 07:10 Sodium 134 L (135-145) mmol/L Anion Gap 13.10 H (4.00-12.00) mmol/L BUN 55.3 H (9.0-27.0) mg/dL Creatinine 1.8 H (0.6-1.5) mg/dL Est GFR (CKD-EPI) 28 L (>=60) BUN/Creatinine Ratio 30.72 H (12.00-20.00) Ratio Osmolality (275-295) mOsm/kg Calcium 8.5 L (8.7-10.3) mg/dL Cortisol 22.9 H (3.1-22.4) UG/DL Urine Osmolality (400-1100) mOsm/kg Ur Random Sodium (40-220) mmol/L Assessment and Plan Plan: Stage IV pulm adenocarcinoma. The patient has metastatic lung cancer, with previous right-sided pleural effusion, S/P thoracentesis, in [place]. Metastatic lesions throughout the bone and possibly bilateral renal glands. Bone biopsy was consistent with adenocarcinoma. She is following here with medical oncology and radiation oncology. The patient is interested in hospice. The patient is being offered palliative radiation therapy to the right lung. The value of this treatment is not clear to me. It may be palliative at best. The patient was started on radiation therapy and the patient received the first session of radiation therapy today. Acute hypoxic respiratory failure currently on 3 L of oxygen by nasal cannula Shortness of breath, secondary to lung cancer, and right-sided pleural effusion. History of hypertension. Mild hypercalcemia, possibly related to lung cancer, and bony metastasis. The calcium level has normalized Hyponatremia, improving Acute kidney injury, creatinine is improving History of pacemaker insertion. Plan Gentle hydration while monitoring the sodium level and renal function Sodium level is improved Calcium level is normal Monitor renal function Palliative radiation therapy to the right lung No plans for thoracentesis or Pleurx catheter at this admission She is also planning to move to [place] following treatment Titrate the FiO2 as tolerated Evaluate for possible home oxygen Prognosis extremely poor based on above-mentioned comorbidities.
--- NOTE | 2023-11-25 21:36 | P.PN ---
Progress Note - Text Progress Note Date: 11/25/23 Chief Complaint: Short of breath This is a pleasant 78-year-old patient. Patient was in [place] diagnosed with pneumonia subsequently was diagnosed with lung cancer. She has lung cancer with metastasis to the bone. Diagnosed in September of this year. She has been drained once for pleural effusion. Seeing Dr. Perez. Has been having weight loss and some loss of appetite. Patient presents with worsening shortness of breath. Denies any fever and chills. No cough. Sitting up in a chair. Patient was a light smoker for several years in the past. Plan outpatient was to put in a drain on the right chest wall. November 21: Patient found to have not much fluid on the right side. Seen by cardiothoracic team. His Pleurx will not be placed right now. Patient is currently living with her [id number] nearby. Patient daughter's lives 6 hours away in [facility]. Patient is for palliative care currently. She plans to take the patient back. Was explained that once the fluid builds up a bit then the Pleurx can be placed. Getting IV fluids. Tired. Decreased oral intake. November 22: Radiation treatment has been ordered by Dr. Alvaro Perez. For tomorrow. Patient is drinking some Ensure. Diet. On nasal cannula. Worsening renal failure. Could be contrast-induced injury. Getting IV fluids. Consult nephrology. November 23: Patient was seen by Dr. Caldera from radiation oncology. Patient to get radiation treatment for palliative for the hilar mass being causing postobstructive atelectasis and hypoxia. CT simulation will be done tomorrow and just will start on Friday. Creatinine that was going up has now started to come down. Sodium also down as patient not really eating much. November 24: Patient went down for CT simulation. Unable to tolerate the same. Radiation oncologist call me for the same. And felt hospice will be appropriate. I spoke to the social sciences lecturer. Who also spoke to the patient and the daughter. Looking at options for the same. Patient ate a little bit. Tired. Short of breath. Denies pain. Active Medications Acetaminophen (Acetaminophen Tab 325 Mg Tab) 650 mg PO Q6HR PRN PRN Reason: Mild Pain or Fever > 100.5 Last Admin: 11/23/23 08:26 Dose: 650 mg Acetaminophen/Codeine Phosphate (Acetaminophen-Codeine 300-30mg Tab) 1 each PO Q4HR PRN PRN Reason: Pain Last Admin: 11/25/23 01:49 Dose: 1 each Albuterol/Ipratropium (Ipratropium-Albuterol 3 Ml Neb) 3 ml INHALATION RT-QID [facility] Last Admin: 11/25/23 19:56 Dose: Not Given Bisacodyl (Bisacodyl 5 Mg Tablet.Dr) 5 mg PO BID PRN PRN Reason: Constipation Last Admin: 11/23/23 08:27 Dose: 5 mg Calcium Carbonate/Glycine (Calcium Carbonate 500 Mg Chewable) 1,000 mg PO Q4HR PRN PRN Reason: Dyspepsia Calcium Carbonate/Glycine (Calcium Carbonate 500 Mg Chewable) 500 mg PO BID [facility] Last Admin: 11/25/23 12:18 Dose: Not Given Enoxaparin Sodium (Enoxaparin 30 Mg/0.3 Ml Syringe) 30 mg SQ DAILY [facility] Last Admin: 11/25/23 12:07 Dose: 30 mg Famotidine (Famotidine 20 Mg Tab) 20 mg PO HS [facility] Last Admin: 11/24/23 19:49 Dose: 20 mg Sodium Chloride (Saline 0.9%) 1,000 mls @ 50 mls/hr IV .Q20H [facility] Last Admin: 11/25/23 03:06 Dose: 50 mls/hr Lactulose (Lactulose 20 Gm/30 Ml Cup) 20 gm PO DAILY PRN PRN Reason: Constipation Lorazepam (Lorazepam 0.5 Mg Tab) 0.5 mg PO Q8HR PRN PRN Reason: Anxiety Melatonin (Melatonin 3 Mg Tablet) 3 mg PO HS PRN PRN Reason: Insomnia Miscellaneous Information (Potassium Replacement Protocol 1 Each Misc) 1 each MISCELLANE DAILY PRN; Protocol PRN Reason: Per Protocol Naloxone HCl (Naloxone 0.4 Mg/Ml 1 Ml Vial) 0.2 mg IV Q2M PRN PRN Reason: Opioid Reversal Ondansetron HCl (Ondansetron 4 Mg/2 Ml Vial) 4 mg IVP Q8HR PRN PRN Reason: Nausea And Vomiting Last Admin: 11/22/23 05:21 Dose: 4 mg Psyllium Hydrophilic Mucilloid (Psyllium Husk 100% 6 Gm Packet) 6 gm PO DAILY [facility] Last Admin: 11/25/23 11:59 Dose: 6 gm Zolpidem Tartrate (Zolpidem 5 Mg Tab) 2.5 mg PO HS PRN PRN Reason: Insomnia Last Admin: 11/21/23 20:56 Dose: 2.5 mg Social history: Patient smoked about average of 3 cigarettes a day for about 35 years and smoked from the age of 13 to about 48. Patient lives with her [id number] Physical examination: VITAL SIGNS: 97.6, 64, 18, 1 one 3 x 73, 95% on 3 L GENERAL: Lying in bed, tired, short of breath EYES: Pupils equal. Conjunctiva marie l. HEENT: External appearance of nose and ears normal, oral cavity grossly normal. NECK: JVD not raised; masses not palpable. HEART: First and second heart sounds are normal; no edema. LUNGS: Respiratory rate increased, diminished breath sounds ABDOMEN: Soft, nontender, liver spleen not palpable, no masses palpable. PSYCH: Alert and oriented x3; mood and affect tired. MUSCULOSKELETAL:No Clubbing/cyanosis;muscles-grossly intact. OA INVESTIGATIONS, reviewed in the clinical context: November 24: Sodium 134 potassium 4.3 creatinine 1.8 urine osmolality 333 urine random sodium less than 20 November 23: Sodium 125 potassium 4.2 bicarb 20 BUN 60 creatinine 3.10 serum osmolality 296 November 22: Sodium 128 potassium 4 BUN 52 creatinine 3.32 November 21, 2023: White count 14 hemoglobin 10.8 platelets 647 sodium 135 potassium 3.1. 34 creatinine 1.25 Influenza type A, type B, RSV, COVID-19: Not detected EKG tracing personally reviewed by me-ventricular pacemaker CT angio chest for PE: No PE. Right hilar mass with encasement of the right upper lobe bronchus. Possibly additional rib lesions. Expansile lesion posterior left fifth rib. Chest x-ray film personally reviewed by me-possible right lower lobe atelectasis/collapse. 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 Perez. Radiation oncology palliative radiation-CT simulation and successful therapy. -Right upper lobe atelectasis of the lung from carcinoma lung -Right pleural effusion. Patient had thoracentesis x 1 in [place].. Sent in for the same. Supposed to have a right-sided Pleurx catheter. Inadequate amount of right pleural effusion for Pleurx catheter. Present time no further intervention. -Essential hypertension. Currently blood pressure running on the lower side. Cozaar and diuretic have been stopped -Acute kidney injury. Possibly ATN from contrast-induced nephropathy, diuretics Cozaar.: Some improvement Cozaar and diuretics have been held. IV fluids. Renal ultrasound. Nephrology following -Acute hypoxic respiratory failure likely combination of atelectasis from lung cancer and COPD Oxygen -COPD-prior smoker DuoNeb -Hypokalemia from diuretic Replace potassium -Hypoosmolar hyponatremia from decreased oral intake: Some improvement Encourage oral intake . -DNR Looking at hospice placement. Social work involved. No further treatment. Prognosis poor Past Medical History Past Medical History: Cancer, Hypertension Additional Past Medical History / Comment(s): lung cancer w/mets History of Any Multi-Drug Resistant Organisms: None Reported Past Surgical History: Appendectomy, Cholecystectomy, Pacemaker, Tubal Ligation Past Psychological History: No Psychological Hx Reported Smoking Status: Former smoker Past Alcohol Use History: None Reported Past Drug Use History: None Reported
[2023-11-26 08:44] VITALS: RESP 20
--- NOTE | 2023-11-26 11:33 | P.PN ---
Subjective Patient is seen in follow-up for acute kidney injury and hyponatremia. Sodium level improved to 134 as of yesterday. Renal function also improved. Oral intake poor. No active complaints. Vital signs are stable. General: No acute distress. HEENT: Head exam is unremarkable. On nasal cannula. LUNGS: No audible rhonchi or wheezes. HEART: Rate and Rhythm are regular. ABDOMEN: Nontender. EXTREMITITES: No edema. Objective - Vital Signs Vital signs: Vital Signs Temp 98.8 F 11/26/23 07:37 Pulse 113 H 11/26/23 07:37 Resp 20 11/26/23 07:37 BP 146/74 11/26/23 07:37 Pulse Ox 97 11/26/23 08:29 FiO2 Intake & Output 11/25/23 11/26/23 11/26/23 18:59 06:59 18:59 Intake Total 680 Balance 680 Intake: Intake, IV Titration 600 Amount Sodium Chloride 0.9% 1, 600 000 ml @ 50 mls/hr IV . Q20H [facility] Rx#:[id number] Oral 80 Other: Voiding Method Bedside Commode Bedside Commode Diaper Bedpan # Voids 1 1 - Labs CBC & Chem 7: 11/21/23 12:57 11/25/23 07:10 Assessment and Plan Plan: Assessment: 1. Acute kidney injury secondary to ATN secondary to hypotension and further worsen with the use of diuretic and losartan. Creatinine peaked at 3.32 this admission - 1.8 yesterday. No hydronephrosis noted on kidney ultrasound. 2. Hyponatremia secondary to poor solute intake and hypotonic fluid infusion. Was also on thiazide diuretic outpatient. Urine sodium less than 20. Urine osmolality 333. Cortisol level 22.9. TSH normal. Sodium level improved. 3. Metabolic acidosis secondary to acute kidney injury and IV fluids. 4. Metastatic breast cancer. Oncology following. Plan: Maintain gentle IV hydration. Maintain 1500 cc fluid restriction. Encouraged oral intake, especially protein. Status post 1 dose salt tabs given this admission.
[2023-11-26 11:41] LABS: Magnesium 2.1 mg/dL (1.5-2.4)
[2023-11-26 11:52] LABS: BUN/Creat Ratio 34.11 Ratio (12.00-20.00); Blood Urea Nitrogen 30.7 mg/dL (9.0-27.0); Calcium 9.6 mg/dL (8.7-10.3); Carbon Dioxide 21.2 mmol/L (21.6-31.8); Chloride 103 mmol/L (96-109); Glucose 91 mg/dL (70-110); Potassium 4.4 mmol/L (3.5-5.5); Sodium 139 mmol/L (135-145)
--- NOTE | 2023-11-26 12:17 | P.PN ---
Subjective Progress Note Date: 11/26/23 On today's evaluation on 11/24/2023, the patient is lethargic and weak and she does have some shortness of breath at baseline. I reviewed the CAT scan of the chest. The patient has extensive stage IV adenocarcinoma of the lung. The patient had a loculated small right-sided pleural effusion. There is also a right hilar mass encasing the right lower lobe bronchus. There is also expansile lesion posterior left fifth rib. There are also additional 2 rib involvement on the right. The patient continues to have hyponatremia and a sodium level is at 125. Potassium level is at 4.2. BUN is at 60 with a creatinine of 3.1 hide the patient sustained an acute kidney injury and the creatinine is gradually improving. The patient is currently on normal saline 30 to 50 cc an hour. He is on Lovenox for DVT prophylaxis. She was seen by radiation oncology and the patient is being considered for palliative radiation therapy to the chest. Family is interested also in hospice care. On today's evaluation of 11/25/2023, patient is being seen for a follow-up. The patient is essentially the same as yesterday. At times, she was found to be confused. She underwent platelet radiation therapy to her left chest today. Creatinine is improving and the creatinine is down to 1.8 with a BUN of 55 as the patient is recovering from acute kidney injury. Sodium level is also is elevated at 134. Calcium level is within normal limits. The patient is on normal saline at rate of 50 cc an hour. No other significant events over the past 24 hours. Calcium level from today is at 8.5. The patient is comfortable on 3 L with a pulse ox of 98%. On today's evaluation 11/26/2023, no change in the patient's condition. The patient remains on 3 L. The patient is undergoing Perative radiation therapy to the chest. BUN is at 30 with a creatinine of 0.9. Sodium levels at 139. No other significant events otherwise. Objective - Vital Signs Vital signs: Vital Signs Temp 98.8 F 11/26/23 07:37 Pulse 113 H 11/26/23 07:37 Resp 20 11/26/23 07:37 BP 146/74 11/26/23 07:37 Pulse Ox 97 11/26/23 08:29 FiO2 Intake & Output 04/05/1111/26/23 11/26/23 18:59 06:59 18:59 Intake Total 680 Balance 680 Intake: Intake, IV Titration 600 Amount Sodium Chloride 0.9% 1, 600 000 ml @ 50 mls/hr IV . Q20H [facility] Rx#:[id number] Oral 80 Other: Voiding Method Bedside Commode Bedside Commode Diaper Bedpan # Voids 1 1 - Exam GENERAL EXAM: Alert, very pleasant frail 78-year-old female, on 3 L nasal cannula, fairly comfortable in no apparent distress. The patient is lethargic and quite weak at this point. HEAD: Normocephalic. EYES: Normal reaction of pupils, equal size. NOSE: Clear with pink turbinates. THROAT: No erythema or exudates. NECK: No masses, no JVD. CHEST: No chest wall deformity. LUNGS: Equal air entry with no crackles, wheeze, rhonchi or dullness. CVS: S1 and S2 normal with no audible murmur, regular rhythm. ABDOMEN: No hepatosplenomegaly, normal bowel sounds, no guarding or rigidity. SPINE: No scoliosis or deformity SKIN: No rashes CENTRAL NERVOUS SYSTEM: No focal deficits, tone is normal in all 4 extremities. EXTREMITIES: There is no peripheral edema. No clubbing, no cyanosis. Peripheral pulses are intact. - Labs CBC & Chem 7: 11/21/23 12:57 11/26/23 07:17 Labs: Abnormal Lab Results - Last 24 Hours (Table) 11/26/23 Range/Units 07:17 Carbon Dioxide 21.2 L (21.6-31.8) mmol/L Anion Gap 14.80 H (4.00-12.00) mmol/L BUN 30.7 H (9.0-27.0) mg/dL BUN/Creatinine Ratio 34.11 H (12.00-20.00) Ratio Assessment and Plan Plan: Stage IV pulm adenocarcinoma. The patient has metastatic lung cancer, with previous right-sided pleural effusion, S/P thoracentesis, in [place]. Metastatic lesions throughout the bone and possibly bilateral renal glands. Bone biopsy was consistent with adenocarcinoma. She is following here with m edical oncology and radiation oncology. The patient is interested in hospice. The patient is being offered palliative radiation therapy to the right lung. The value of this treatment is not clear to me. It may be palliative at best. The patient was started on radiation therapy and the patient received the first session of radiation therapy today. Acute hypoxic respiratory failure currently on 3 L of oxygen by nasal cannula Shortness of breath, secondary to lung cancer, and right-sided pleural effusion. History of hypertension. Mild hypercalcemia, possibly related to lung cancer, and bony metastasis. The calcium level has normalized Hyponatremia, improving Acute kidney injury, creatinine is improving History of pacemaker insertion. Plan Condition is essentially unchanged Sodium level is improved Calcium level is normal Monitor renal function Palliative radiation therapy to the right lung No plans for thoracentesis or Pleurx catheter at this admission She is also planning to move to [place] following treatment Titrate the FiO2 as tolerated Evaluate for possible home oxygen Prognosis extremely poor based on above-mentioned comorbidities.
--- NOTE | 2023-11-26 13:12 | P.DS ---
Providers Date of admission: 11/21/23 15:35 Expected date of discharge: 11/26/23 Attending physician: Lev Simpson Consults: 11/21/23 15:33 Consult Physician Urgent Consulting Provider: Philipp Perez Consult Reason/Comments: Lung cancer Do you want consulting provider notified?: Yes Consult Physician Urgent Consulting Provider: Jesse Rios Consult Reason/Comments: Lung cancer, pleural effusion Do you want consulting provider notified?: Yes Consult Physician Urgent Consulting Provider: Ad Mckenzie Consult Reason/Comments: Pleural effusion Do you want consulting provider notified?: Yes 11/22/23 15:52 Consult Physician Routine Consulting Provider: Scar Robb Consult Reason/Comments: Metastatic NSCLC, palliative RT Do you want consulting provider notified?: Yes, Notify in am 11/23/23 13:19 Consult Physician Routine Consulting Provider: Ruth Ann Nj Consult Reason/Comments: RONALD Do you want consulting provider notified?: Yes Primary care physician: Мария Ramon MD Hospital Course: Chief Complaint: Short of breath This is a pleasant 78-year-old patient. Patient was in [place] diagnosed with p neumonia subsequently was diagnosed with lung cancer. She has lung cancer with metastasis to the bone. Diagnosed in September of this year. She has been drained once for pleural effusion. Seeing Dr. Perez. Has been having weight loss and some loss of appetite. Patient presents with worsening shortness of breath. Denies any fever and chills. No cough. Sitting up in a chair. Patient was a light smoker for several years in the past. Plan outpatient was to put in a drain on the right chest wall. November 21: Patient found to have not much fluid on the right side. Seen by cardiothoracic team. His Pleurx will not be placed right now. Patient is currently living with her [id number] nearby. Patient daughter's lives 6 hours away in [facility] in [place]. Patient is for palliative care currently. She plans to take the patient back. Was explained that once the fluid builds up a bit then the Pleurx can be placed. Getting IV fluids. Tired. Decreased oral intake. November 22: Radiation treatment has been ordered by Dr. Alvaro Perez. For tomorrow. Patient is drinking some Ensure. Diet. On nasal cannula. Worsening renal failure. Could be contrast-induced injury. Getting IV fluids. Consult nephrology. November 23: Patient was seen by Dr. Caldera from radiation oncology. Patient to get radiation treatment for palliative for the hilar mass being causing postobstructive atelectasis and hypoxia. CT simulation will be done tomorrow and just will start on Friday. Creatinine that was going up has now started to come down. Sodium also down as patient not really eating much. November 24: Patient went down for CT simulation. Unable to tolerate the same. Radiation oncologist call me for the same. And felt hospice will be appropriate. I spoke to the social services director. Who also spoke to the patient and the daughter. Looking at options for the same. Patient ate a little bit. Tired. Short of breath. Denies pain. November 25: Patient barely eating. Some shortness of breath. Will be going to hospice house for inpatient hospice. Spoke to the social services director and the nurse. And the liaison from hospice house. Discussion and discharge planning more than 35 minutes At Social history: Patient smoked about average of 3 cigarettes a day for about 35 years and smoked from the age of 13 to about 48. Patient lives with her [id number] Physical examination: VITAL SIGNS: 98.8, 113, 20, 146 presently 4, 97% on 3 L GENERAL: Sitting up in bed, tired, short of breath EYES: Pupils equal. Conjunctiva marie l. HEENT: External appearance of nose and ears normal, oral cavity grossly normal. NECK: JVD not raised; masses not palpable. HEART: First and second heart sounds are normal; no edema. LUNGS: Respiratory rate increased, diminished breath sounds ABDOMEN: Soft, nontender, liver spleen not palpable, no masses palpable. PSYCH: Alert and oriented x3; mood and affect tired. MUSCULOSKELETAL:No Clubbing/cyanosis;muscles-grossly intact. OA INVESTIGATIONS, reviewed in the clinical context: November 25: Sodium 139 potassium 4.4 creatinine 0.9 November 24: Sodium 134 potassium 4.3 creatinine 1.8 urine osmolality 333 urine random sodium less than 20 November 23: Sodium 125 potassium 4.2 bicarb 20 BUN 60 creatinine 3.10 serum osmolality 296 November 22: Sodium 128 potassium 4 BUN 52 creatinine 3.32 November 21, 2023: White count 14 hemoglobin 10.8 platelets 647 sodium 135 potassium 3.1. 34 creatinine 1.25 Influenza type A, type B, RSV, COVID-19: Not detected EKG tracing personally reviewed by me-ventricular pacemaker CT angio chest for PE: No PE. Right hilar mass with encasement of the right upper lobe bronchus. Possibly additional rib lesions. Expansile lesion posterior left fifth rib. Chest x-ray film personally reviewed by me-possible right lower lobe atelectasis/collapse. 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 Perez. Radiation oncology palliative radiation-CT simulation: Patient unable to tolerate -Right upper lobe atelectasis of the lung from carcinoma lung -Right pleural effusion. Patient had thoracentesis x 1 in [place].. Secondary to malignancy. -Essential hypertension. Currently blood pressure running on the lower side. Cozaar and diuretic have been stopped -Acute kidney injury. Possibly ATN from contrast-induced nephropathy, diuretics Cozaar.: Resolved Cozaar and diuretics have been held. IV fluids. Renal ultrasound. Nephrology following -Acute hypoxic respiratory failure likely combination of atelectasis from lung cancer and COPD Oxygen -COPD-prior smoker DuoNeb -Hypokalemia from diuretic Replace potassium -Hypoosmolar hyponatremia from decreased oral intake: Some improvement Encourage oral intake -Acute medical debility from underlying malignancy/lung cancer . -DNR for/hospice Disposition: Hospice house in [place]. VNA Past Medical History Past Medical History: Cancer, Hypertension Additional Past Medical History / Comment(s): lung cancer w/mets History of Any Multi-Drug Resistant Organisms: None Reported Past Surgical History: Appendectomy, Cholecystectomy, Pacemaker, Tubal Ligation Past Psychological History: No Psychological Hx Reported Smoking Status: Former smoker Past Alcohol Use History: None Reported Past Drug Use History: None Reported Plan - Discharge Summary Discharge Rx Participant: No New Discharge Prescriptions: New Ipratropium-Albuterol Nebulize [Duoneb 0.5 mg-3 mg/3 ml Soln] 3 ml INHALATION RT-QID each Acetaminophen Tab [Tylenol] 650 mg PO Q6HR PRN tab PRN Reason: Mild Pain Or Fever > 100.5 Continue bisacodyL [Dulcolax] 5 mg PO BID PRN PRN Reason: Constipation Discontinued Aspirin [[place] Aspirin EC] 81 mg PO DAILY Losartan Potassium [Cozaar] 100 mg PO DAILY Cholecalciferol [Vitamin D3 (25 Mcg = 1000 Iu)] 25 mcg PO DAILY Chlorthalidone 50 mg PO DAILY Discharge Medication List bisacodyL [Dulcolax] 5 mg PO BID PRN 11/21/23 [History] Acetaminophen Tab [Tylenol] 650 mg PO Q6HR PRN tab 11/26/23 [Rx] Ipratropium-Albuterol Nebulize [Duoneb 0.5 mg-3 mg/3 ml Soln] 3 ml INHALATION RT-QID each 11/26/23 [Rx] Follow up Appointment(s)/Referral(s): Мария Ramon MD [Primary Care Provider] - 1-2 days Discharge Disposition: [facility] TO [facility]
[2023-11-26 15:21] VITALS: BP 136/73; PULSE 96; TEMP 98.5
[2023-11-27] MEDS ORDERED: ENOXAPARIN 40 MG/0.4 ML SYRINGE SQ SCH (09:00)
== END 2023-11-26 17:50 | disposition hospice, inpatient (51) | DRG 180 ==
LOC: EC 11:17 → 5NMEDONC 15:35
PROVIDERS: ADMIT Hospitalist; ATTEND Hospitalist
DX: C34.91 Malignant neoplasm of unspecified part of right bronchus or lung (principal); J96.01 Acute respiratory failure with hypoxia; N17.0 Acute kidney failure with tubular necrosis; C79.9 Secondary malignant neoplasm of unspecified site; E87.1 Hypo-osmolality and hyponatremia; C79.51 Secondary malignant neoplasm of bone; J98.11 Atelectasis; J91.0 Malignant pleural effusion; E87.20 Acidosis, unspecified; Z51.5 Encounter for palliative care; E83.52 Hypercalcemia; I48.91 Unspecified atrial fibrillation; F17.210 Nicotine dependence, cigarettes, uncomplicated; F41.9 Anxiety disorder, unspecified; G47.00 Insomnia, unspecified; I10 Essential (primary) hypertension; K21.00 Gastro-esophageal reflux disease with esophagitis, without bleeding; K59.00 Constipation, unspecified; Z79.82 Long term (current) use of aspirin; Z79.899 Other long term (current) drug therapy; Z85.118 Personal history of other malignant neoplasm of bronchus and lung; Z85.3 Personal history of malignant neoplasm of breast; Z95.0 Presence of cardiac pacemaker; Z90.49 Acquired absence of other specified parts of digestive tract; Z98.51 Tubal ligation status
CPT/HCPCS: 36415; 71046; 71275; 76604; 76770; 80048; 80053; 82533; 83605; 83735; 83930; 83935; 84132; 84300; 84443; 84484; 85025; 85610; 85730; 87636; 93005; 94640; 94760; 96374; 99285